=== PATIENT | female | born 1930 | race Caucasian/White ===

== ENCOUNTER 2016-09-18 10:20 | Inpatient (IN) | payer MEDICARE, BC, MEDICAID ==
[2016-09-18] MEDS ORDERED: fentaNYL 100 MCG/2 ML SDV IM ONE (10:49)
--- NOTE | 2016-09-18 11:54 | EDM.PDOC ---
ED HPI GENERAL MEDICAL PROBLEM - General Chief Complaint: Upper Extremity Injury/Pain Stated Complaint: FALL VIA [facility] Time Seen by Provider: 09/18/16 10:50 Source of Information: Reports: Patient, EMS, Family History Limitations: Reports: No Limitations - History of Present Illness INITIAL COMMENTS - FREE TEXT/NARRATIVE: 86-year-old female fell out of bed this morning at the long term injuring her right arm. She also has a small bruise above her left eyebrow. She has swelling and some deformity of the right arm, intense pain with any movement or manipulation. Onset: Today Location: Reports: Head, Upper Extremity, Right Quality: Reports: Sharp, Stabbing Severity: Moderate Worsens with: Reports: Movement Associated Symptoms: Reports: Confusion (Chronic and stable). Denies: Shortness of Breath - Related Data Allergies Allergy/AdvReac Type Severity Reaction Status Date / Time diclofenac [Diclofenac] Allergy Unknown Cannot Verified 01/02/14 20:42 Remember ibuprofen Allergy Unknown Cannot Verified 01/02/14 20:43 Remember simvastatin [From Zocor] Allergy Unknown Cannot Verified 01/02/14 20:43 Remember Home Meds: Home Meds Aspirin [Priyank Chewable] 81 mg PO DAILY 01/02/13 [History] Donepezil [Aricept] 10 mg PO BEDTIME 01/02/13 [History] Memantine [Namenda] 10 mg PO BID 01/02/13 [History] Metoprolol Succinate [Toprol XL] 25 mg PO DAILY 01/02/13 [History] Potassium Chloride [Klor-Con] 20 meq PO DAILY 01/02/13 [History] amLODIPine [Norvasc] 10 mg PO DAILY 01/02/13 [History] traMADol [Ultram] 50 mg PO TID 01/02/13 [History] Lactobacillus Combination No.4 [Probiotic] 1 cap PO BID 01/02/14 [History] Liquicel 1 oz PO BID 01/02/14 [History] Lisinopril [Zestril] 2.5 mg PO DAILY 01/02/14 [History] Acetaminophen [Tylenol] 650 mg PO TID 09/18/16 [History] Aspirin 81 mg PO DAILY 09/18/16 [History] Bisacodyl [Dulcolax] 1 supp RECTAL ASDIRECTED PRN 09/18/16 [History] Citalopram Hydrobromide [Celexa] 20 mg PO DAILY 09/18/16 [History] Diclofenac Sodium [Voltaren 1%] 1 applic TP TID 09/18/16 [History] LORazepam [Ativan] 0.25 mg PO Q6H PRN 09/18/16 [History] Lovastatin 10 mg PO DAILY 09/18/16 [History] Magnesium Hydroxide [Milk of Magnesia] 30 ml PO DAILY PRN 09/18/16 [History] Menthol/Zinc Oxide [Calmoseptine] 1 gm TOP TID 09/18/16 [History] Past Medical History Cardiovascular History: Reports: CAD, Hypertension, PVD Gastrointestinal History: Reports: Chronic Constipation, GERD Genitourinary History: Reports: Other (See Below) Other Genitourinary History: chronic kidney disease [employer]IDENT [employer] History: Reports: , Other (See Below) Other OB/BYN History: ovarian cyst Psychiatric History: Reports: Alzheimers Disease, Dementia Hematologic History: Reports: Anemia Dermatologic History: Reports: Cellulitis - Infectious Disease History Infectious Disease History: Reports: Chicken Pox, Measles, Mumps - Past Surgical History Cardiovascular Surgical History: Reports: Coronary Artery Stent GI Surgical History: Reports: Hernia Repair/Other Female Surgical History: Reports: Hysterectomy Musculoskeletal Surgical History: Reports: Knee Replacement, Other (See Below) Other Musculoskeletal Surgeries/Procedures:: hip surgery Social & Family History - Tobacco Use Smoking Status *Q: Never Smoker Years of Tobacco use: 50 Second Hand Smoke Exposure: No - Alcohol Use Days Per Week of Alcohol Use: 0 - Recreational Drug Use Recreational Drug Use: No Review of Systems - Review of Systems Review Of Systems: See Below Respiratory: Denies: Shortness of Breath Cardiovascular: Denies: Chest Pain Neurological: Reports: Confusion. Denies: Headache Psychiatric: Reports: Confusion ED EXAM, GENERAL - Physical Exam Exam: See Below Exam Limited By: No Limitations General Appearance: Alert, No Apparent Distress (no significant distress if arm is still) Eye Exam: Bilateral Eye: EOMI Head: Other (Very small contusion is present just above the left eyebrow) Neck: Supple Respiratory/Chest: No Respiratory Distress, Lungs Clear Cardiovascular: Regular Rate, Rhythm GI/Abdominal: Soft, Non-Tender Extremities: Other (Right upper arm is swollen with significant pain with even slight palpation or manipulation of the elbow. Sensation of the fingers is intact) Course - Vital Signs Last Recorded V/S: Last Vital Signs Temp 97.0 F 09/18/16 15:58 Pulse 54 L 09/18/16 15:58 Resp 16 09/18/16 15:58 BP 142/65 H 09/18/16 15:58 Pulse Ox 94 L 09/18/16 15:58 - Orders/Labs/Meds Orders: Active Orders 24 hr Category Date Time Status Elbow wo Cont Rt [CT] Stat Exams 09/18/16 11:49 Taken Humerus Rt [CR] Stat Exams 09/18/16 10:50 Taken Medication Orders Acetaminophen (Tylenol Extra Strength) 1,000 mg PO TID [facility] Last Admin: 09/18/16 17:38 Dose: 1,000 mg Amlodipine Besylate (Norvasc) 10 mg PO DAILY [facility] Aspirin (Aspirin) 81 mg PO DAILY [facility] Citalopram Hydrobromide (Celexa) 20 mg PO DAILY [facility] Donepezil HCl (Aricept) 10 mg PO BEDTIME [facility] Hydromorphone HCl (Dilaudid) 0.5 - 1 mg IVPUSH Q2H PRN PRN Reason: Pain (severe 7-10) Sodium Chloride (Normal Saline) 1,000 mls @ 50 mls/hr IV ASDIRECTED [facility] Last Admin: 09/18/16 17:43 Dose: 50 mls/hr Lactobacillus Rhamnosus (Culturelle) 2 cap PO BID [facility] Lisinopril (Prinivil) 2.5 mg PO DAILY [facility] Lorazepam (Ativan) 0.25 mg PO Q6H PRN PRN Reason: ANXIETY Melatonin (Melatonin) 9 mg PO BEDTIME [facility] Memantine (Namenda) 10 mg PO BID [facility] Metoprolol Succinate (Toprol Xl) 25 mg PO DAILY [facility] Ondansetron HCl (Zofran Odt) 4 mg PO Q6H PRN PRN Reason: Nausea able to take PO Oxycodone HCl (Oxycodone) 5 mg PO Q4H PRN PRN Reason: Pain (moderate 4-6) Polyethylene Glycol (Miralax) 17 gm PO DAILY PRN PRN Reason: Constipation Potassium Chloride (Klor-Con M20) 20 meq PO DAILY [facility] Senna/Docusate Sodium (Senna Plus) 1 tab PO BID PRN PRN Reason: Constipation Sodium Chloride (Saline Flush) 10 ml FLUSH ASDIRECTED PRN PRN Reason: Keep Vein Open Tramadol HCl (Ultram) 50 mg PO QID [facility] Last Admin: 09/18/16 17:38 Dose: 50 mg Meds: Medications Generic Name Dose Route Start Last Admin Trade Name Martinez PRN Reason Stop Dose Admin Acetaminophen 1,000 mg 09/18/16 15:30 09/18/16 17:38 Tylenol Extra Strength PO 1,000 mg TID [facility] Administration Amlodipine Besylate 10 mg 09/19/16 09:00 Norvasc PO DAILY [facility] Aspirin 81 mg 09/19/16 09:00 Aspirin PO DAILY [facility] Citalopram Hydrobromide 20 mg 09/19/16 09:00 Celexa PO DAILY [facility] Donepezil HCl 10 mg 09/18/16 21:00 Aricept PO BEDTIME [facility] Hydromorphone HCl 0.5 - 1 mg 09/18/16 15:18 Dilaudid IVPUSH Q2H PRN Pain (severe 7-10) Sodium Chloride 1,000 mls @ 50 mls/hr 09/18/16 15:18 09/18/16 17:43 Normal Saline IV 50 mls/hr ASDIRECTED [facility] Administration Lactobacillus Rhamnosus 2 cap 09/18/16 21:00 Culturelle PO BID [facility] Lisinopril 2.5 mg 09/19/16 09:00 Prinivil PO DAILY [facility] Lorazepam 0.25 mg 09/18/16 15:30 Ativan PO Q6H PRN ANXIETY Melatonin 9 mg 09/18/16 21:00 Melatonin PO BEDTIME [facility] Memantine 10 mg 09/18/16 21:00 Namenda PO BID [facility] Metoprolol Succinate 25 mg 09/19/16 09:00 Toprol Xl PO DAILY [facility] Ondansetron HCl 4 mg 09/18/16 15:18 Zofran Odt PO Q6H PRN Nausea able to take PO Oxycodone HCl 5 mg 09/18/16 15:18 Oxycodone PO Q4H PRN Pain (moderate 4-6) Polyethylene Glycol 17 gm 09/18/16 15:18 Miralax PO DAILY PRN Constipation Potassium Chloride 20 meq 09/19/16 09:00 Klor-Con M20 PO DAILY [facility] Senna/Docusate Sodium 1 tab 09/18/16 15:18 Senna Plus PO BID PRN Constipation Sodium Chloride 10 ml 09/18/16 15:18 Saline Flush FLUSH ASDIRECTED PRN Keep Vein Open Tramadol HCl 50 mg 09/18/16 16:00 09/18/16 17:38 Ultram PO 50 mg QID [facility] Administration Discontinued Medications Generic Name Dose Route Start Last Admin Trade Name Martinez PRN Reason Stop Dose Admin Fentanyl 25 mcg 09/18/16 10:49 09/18/16 10:57 Sublimaze IM 09/18/16 10:50 25 mcg ONETIME ONE Administration Pneumococcal Polyvalent Vaccine 0.5 ml 09/18/16 16:26 Pneumovax 23 SUBCUT 09/18/16 16:27 .ONCE ONE - Re-Assessments/Exams Free Text/Narrative Re-Assessment/Exam: 09/18/16 14:14 A right humerus x-ray revealed an angulate displaced supracondylar fracture. This was confirmed with a CT scan of the elbow. Dr. Sidney Carrillo was consulted , came in and saw the patient and with the assistance of the hospitalist service will admit the patient for internal reduction and fixation. A long-arm Ortho-Glass splint was applied prior to admission. Patient was also given 25 g of fentanyl IM prior to her first x-ray. Departure - Departure Time of Disposition: 15:06 Disposition: Admitted As Inpatient 65 Condition: Fair Clinical Impression: Right supracondylar humerus fracture Qualifiers: Encounter type: initial encounter Fracture type: closed Qualified Code(s): S42.411A - Displaced simple supracondylar fracture without intercondylar fracture of right humerus, initial encounter for closed fracture Contusion of left eyebrow Qualifiers: Encounter type: initial encounter Qualified Code(s): S00.12XA - Contusion of left eyelid and periocular area, initial encounter - Discharge Information - My Orders Last 24 Hours: My Active Orders 09/18/16 10:50 Humerus Rt [CR] Stat 09/18/16 11:49 Elbow wo Cont Rt [CT] Stat - Assessment/Plan Last 24 Hours: My Active Orders 09/18/16 10:50 Humerus Rt [CR] Stat 09/18/16 11:49 Elbow wo Cont Rt [CT] Stat
--- NOTE | 2016-09-18 14:48 | PCM.HP ---
H&P History of Present Illness - General Date of Service: 09/18/16 Admit Problem/Dx: Admission Diagnosis/Problem Admission Diagnosis/Problem Fracture of humerus, proximal, right, closed Source of Information: Patient, Family, Provider History Limitations: Reports: Altered Mental Status (dementia) - History of Present Illness Initial Comments - Free Text/Narative: Atiya presents to the emergency room today with right arm pain after falling out of bed. History is gathered from her daughter and emergency room staff because information from the patient is limited due to her dementia. She repeatedly asks why her arm hurts and does not recall the event. Staff at the group home reported finding her on the floor near her bed complaining of severe arm pain. She was taken to the emergency room where a distal humerus fracture was discovered on the right. This was reduced in the emergency room and a splint applied. The plan is for surgical intervention tomorrow. She will be admitted overnight for pain control. She is unable to tell me much about her pain other than her arm hurts. - Related Data Allergies/Adverse Reactions: Allergies Allergy/AdvReac Type Severity Reaction Status Date / Time diclofenac [Diclofenac] Allergy Unknown Cannot Verified 01/02/14 20:42 Remember ibuprofen Allergy Unknown Cannot Verified 01/02/14 20:43 Remember simvastatin [From Zocor] Allergy Unknown Cannot Verified 01/02/14 20:43 Remember Home Medications: Home Meds Aspirin [Priyank Chewable] 81 mg PO DAILY 01/02/13 [History] Donepezil [Aricept] 10 mg PO BEDTIME 01/02/13 [History] Memantine [Namenda] 10 mg PO BID 01/02/13 [History] Metoprolol Succinate [Toprol XL] 25 mg PO DAILY 01/02/13 [History] Potassium Chloride [Klor-Con] 20 meq PO DAILY 01/02/13 [History] amLODIPine [Norvasc] 10 mg PO DAILY 01/02/13 [History] traMADol [Ultram] 50 mg PO TID 01/02/13 [History] Lactobacillus Combination No.4 [Probiotic] 1 cap PO BID 01/02/14 [History] Liquicel 1 oz PO BID 01/02/14 [History] Lisinopril [Zestril] 2.5 mg PO DAILY 01/02/14 [History] Acetaminophen [Tylenol] 650 mg PO TID 09/18/16 [History] Aspirin 81 mg PO DAILY 09/18/16 [History] Bisacodyl [Dulcolax] 1 supp RECTAL ASDIRECTED PRN 09/18/16 [History] Citalopram Hydrobromide [Celexa] 20 mg PO DAILY 09/18/16 [History] Diclofenac Sodium [Voltaren 1%] 1 applic TP TID 09/18/16 [History] LORazepam [Ativan] 0.25 mg PO Q6H PRN 09/18/16 [History] Lovastatin 10 mg PO DAILY 09/18/16 [History] Magnesium Hydroxide [Milk of Magnesia] 30 ml PO DAILY PRN 09/18/16 [History] Menthol/Zinc Oxide [Calmoseptine] 1 gm TOP TID 09/18/16 [History] Past Medical History Cardiovascular History: Reports: CAD, Hypertension, PVD Gastrointestinal History: Reports: Chronic Constipation, GERD Genitourinary History: Reports: Other (See Below) Other Genitourinary History: chronic kidney disease [employer] History: Reports: , Other (See Below) Other OB/BYN History: ovarian cyst Psychiatric History: Reports: Alzheimers Disease, Dementia Hematologic History: Reports: Anemia Dermatologic History: Reports: Cellulitis - Infectious Disease History Infectious Disease History: Reports: Chicken Pox, Measles, Mumps - Past Surgical History Cardiovascular Surgical History: Reports: Coronary Artery Stent GI Surgical History: Reports: Hernia Repair/Other Female Surgical History: Reports: Hysterectomy Musculoskeletal Surgical History: Reports: Knee Replacement, Other (See Below) Other Musculoskeletal Surgeries/Procedures:: hip surgery Social & Family History - Family History Cardiac: Denies: CAD - Tobacco Use Smoking Status *Q: Never Smoker Years of Tobacco use: 50 Second Hand Smoke Exposure: No - Alcohol Use Days Per Week of Alcohol Use: 0 - Recreational Drug Use Recreational Drug Use: No H&P Review of Systems - Review of Systems: Review Of Systems: See Below Free Text/Narrative: A complete 12 point review of systems was obtained. Pertinent positives and negatives are noted in the history of present illness. All other systems were reviewed and were negative except as noted. Exam - Exam Exam: See Below - Vital Signs Vital Signs: Last Vital Signs Temp 36.8 C 09/18/16 10:34 Pulse 55 L 09/18/16 14:36 Resp 16 09/18/16 12:35 BP 145/63 H 09/18/16 14:36 Pulse Ox 95 09/18/16 14:36 Weight: 60.781 kg - Exam Quality Assessment: No: Supplemental Oxygen General: Alert, Cooperative, Mild Distress. No: Oriented HEENT: Conjunctiva Clear, Mucosa Moist & [place]. No: Scleral Icterus Neck: Supple, Trachea Midline. No: Lymphadenopathy Lungs: Clear to Auscultation, Normal Respiratory Effort Cardiovascular: Regular Rate, Regular Rhythm. No: Systolic Murmur GI/Abdominal Exam: Normal Bowel Sounds, Soft, No Distention, Tender (mild LLQ tenderness) Extremities: No Pedal Edema, Other (right arm in a splint and wrapped with an OSEI. Able to wiggle all her fingers) Peripheral Pulses: 2+: Radial (R), Dorsalis Pedis (L), Dorsalis Pedis (R) Skin: Warm, Dry, Intact Neuro Extensive - Mental Status: Alert, Nl Response to Commands, Other (hard of hearing ). No: Oriented x3 Neuro Extensive - Motor, Sensory, Reflexes: CN II-XII Intact. No: Dysarthria, Abnormal Motor, Tremor Psychiatric: Alert, Normal Affect - Patient Data Result Diagrams: 09/18/16 15:35 09/18/16 15:35 Imaging Impressions Last 24 hrs: XR right humerus - images personally reviewed - there is a comminuted displaced distal humerus fracture CT right elbow - images personally reviewed - same findings as XRay *Q Meaningful Use (ADM) - VTE *Q VTE Criteria *Q: VTE Pharmacological Contraindications *Q: Patient Scheduled Surgery - VTE Risk Assess *Q Each Risk Factor Represents 1 Point: Minor Surgery Planned, Abnormal Pulmonary Function (COPD) Total Score 1 Point Risk Factors: 2 Each Risk Factor Represents 2 Points: None Total Score 2 Point Risk Factors: 0 Each Risk Factor Represents 3 Points: Age 75 Years or Greater Total Score 3 Point Risk Factors: 3 Each Risk Factor Represents 5 Points: None Total Score 5 Point Risk Factors: 0 Venous Thromboembolism Risk Factor Score *Q: 5 - Stroke *Q Stroke Criteria *Q: - AMI *Q AMI Criteria *Q: - Problem List (1) Right supracondylar humerus fracture SNOMED Code(s): 528162943 ICD Code: S42.411A - DISPL SIMPLE SUPRCNDL FX W/O INTRCNDL FX R HUMERUS, INIT Status: Acute Current Visit: Yes Qualifiers: Encounter type: initial encounter Fracture type: closed Qualified Code(s) : S42.411A - Displaced simple supracondylar fracture without intercondylar fracture of right humerus, initial encounter for closed fracture (2) Dementia SNOMED Code(s): 29129471 ICD Code: F03.90 - UNSPECIFIED DEMENTIA WITHOUT BEHAVIORAL DISTURBANCE Status: Chronic Current Visit: No (3) CAD (coronary artery disease) SNOMED Code(s): 79895632 ICD Code: I25.10 - ATHSCL HEART DISEASE OF [place] CORONARY ARTERY W/O ANG PCTRS Status: Chronic Current Visit: Yes Qualifiers: Coronary Disease-Associated Artery/Lesion type: [place] artery [place] vs. transplanted heart: [place] heart Associated angina: without angina Qualified Code(s): I25.10 - Atherosclerotic heart disease of [place] coronary artery without angina pectoris Problem List Initiated/Reviewed/Updated: Yes Orders Last 24hrs: Active Orders 24 hr Category Date Time Status Patient Status Manage Transfer [TRANSFER] Routine ADT 09/18/16 14:32 Ordered Elbow wo Cont Rt [CT] Stat Exams 09/18/16 11:49 Taken Humerus Rt [CR] Stat Exams 09/18/16 10:50 Taken Resuscitation Status Routine Resus Stat 09/18/16 14:33 Ordered Assessment/Plan Comment:: Assessment and plan - Distal right humerus fracture - fracture was closed but displaced and comminuted. Surgical intervention is planned tomorrow morning. She does have a history of myocardial infarction in the setting of sepsis. Current functional status very limited and she is wheelchair bound. She is not able to provide any useful history about presence or absence of anginal symptoms. She is probably in optimal achievable medical condition at this time. Vital signs are stable and I see no obvious reason why she would not tolerate this low risk surgery. -Admit for pain control -Surgical consultation for surgical intervention tomorrow -Get baseline labs including kidney function and hemoglobin Coronary artery disease - she has a history of a myocardial infarction in the setting of sepsis. Functional status limited but I don't believe there is a high cardiac risk at this point. Surgery is low risk and I think she should do well. -Blood pressure control and close monitoring of vital signs Alzheimer's dementia - no major behavior issues at this time though her daughter reports she can get feisty, especially when she is in pain. -Scheduled Tylenol -Scheduled tramadol -As needed oxycodone for severe pain -Melatonin at bedtime Maintenance issues - - DVT prophylaxis - mechanical - GI prophylaxis - PPI - Nutrition - regular diet this evening, nothing by mouth after midnight - Maldonado catheter - not indicated CODE STATUS - DNR/DNI Admission justification - This patient will be admitted for inpatient services and is medically appropriate meeting medical necessity for inpatient admission as outlined in my documentation. I reasonably expect the patient will require inpatient services that span a period time over 2 midnights. I reasonably expect this patient to be discharged or transferred within 96 hours after admission to the [facility]. Disposition - anticipate discharge back to the group home after the hospital stay Primary care physician - Dr. Randy Keating M.D.
[2016-09-18] MEDS ORDERED: Ondansetron 4 MG Tab.DIS PO PRN (15:18)
[2016-09-18] MEDS ORDERED: HYDROmorphone 0.5 MG/0.5 ML Syringe IVPUSH PRN (15:18)
[2016-09-18] MEDS ORDERED: Sodium Chloride 0.9% 10 ML Syringe FLUSH PRN (15:18)
[2016-09-18] MEDS ORDERED: LORazepam 0.5 MG Tab PO SCH (15:18)
[2016-09-18] MEDS ORDERED: Sodium Chloride 0.9% 1,000 ML IV SCH (15:18)
[2016-09-18] MEDS ORDERED: Polyethylene Glycol 3350 Powder 17 GM Packet PO PRN (15:18)
[2016-09-18] MEDS ORDERED: LORazepam 0.5 MG Tab PO PRN (15:30)
[2016-09-18] MEDS ORDERED: Pneumococcal Polyvalent-23 Vaccine 0.5 ML SDV SUBCUT ONE (16:26)
[2016-09-18] MEDS: Acetaminophen 500 MG Tab PO SCH ×2 (17:38→20:51)
[2016-09-18] MEDS: traMADol 50 MG Tab PO SCH ×2 (17:38→21:58)
[2016-09-18] MEDS: Lactobacillus Rhamnosus GG (Probiotic) Cap PO SCH (20:50)
[2016-09-18] MEDS: Memantine 10 MG Tab PO SCH (20:50)
[2016-09-18] MEDS: Melatonin 3 MG Tab PO SCH (20:50)
[2016-09-18] MEDS: Donepezil 10 MG Tab PO SCH (20:51)
[2016-09-19] MEDS: traMADol 50 MG Tab PO SCH ×3 (05:41→21:09)
[2016-09-19] MEDS ORDERED: Bupivacaine 0.5% 50 ML MDV ONE (06:03)
[2016-09-19] MEDS ORDERED: Povidone-Iodine 10% Soln 118.25 ML Bottle ONE (06:03)
[2016-09-19] MEDS ORDERED: Non-Formulary Medication 1 Each (Citalopram Hydrobromide [Celexa] 20 MG) PO SCH (09:00)
[2016-09-19] MEDS ORDERED: Non-Formulary Medication 1 Each (Potassium Chloride [Klor-Con] 20 MEQ) PO SCH (09:00)
[2016-09-19] MEDS ORDERED: Metoprolol Succinate 50 MG Tab.ER PO SCH (09:00)
[2016-09-19] MEDS ORDERED: ceFAZolin 2 GM in Premix Bag 1 BAG IV ONE (09:15)
[2016-09-19] MEDS ORDERED: Ondansetron 4 MG/2 ML SDV ONE (09:26)
[2016-09-19] MEDS ORDERED: Succinylcholine 200 MG/10 ML MDV ONE (09:26)
[2016-09-19] MEDS ORDERED: Propofol 200 MG/20 ML SDV ONE (09:26)
[2016-09-19] MEDS ORDERED: Rocuronium 50 MG/5 ML Vial ONE (09:26)
[2016-09-19] MEDS ORDERED: Dexamethasone 4 MG/ML SDV ONE (09:26)
[2016-09-19] MEDS ORDERED: fentaNYL 100 MCG/2 ML SDV ONE ×3 (09:26→12:22)
[2016-09-19] MEDS ORDERED: Gelatin Sponge,Absorbable Pwd 1 GM Pkt ONE (11:00)
[2016-09-19] MEDS ORDERED: Ketorolac 30 MG/ML SDV IVPUSH PRN (13:12)
[2016-09-19] MEDS ORDERED: Sennosides 8.6 MG Tab PO PRN (13:12)
[2016-09-19] MEDS ORDERED: Aluminum Hydroxide/Magnesium Hydroxide/Simethicone Susp 30 ML Cup PO PRN (13:12)
[2016-09-19] MEDS ORDERED: Naloxone 0.4 MG/ML SDV IVPUSH PRN (13:12)
[2016-09-19] MEDS ORDERED: Bisacodyl 5 MG Tab PO PRN (13:12)
[2016-09-19] MEDS ORDERED: diphenhydrAMINE 50 MG/ML SDV IVPUSH PRN (13:12)
[2016-09-19] MEDS ORDERED: Zolpidem 5 MG Tab PO PRN (13:12)
[2016-09-19] MEDS ORDERED: Docusate Sodium 100 MG Cap PO PRN (13:12)
[2016-09-19] MEDS ORDERED: Magnesium Hydroxide 400 MG/5 ML Susp 30 ML Cup PO PRN (13:12)
[2016-09-19] MEDS ORDERED: ceFAZolin 2 GM in Premix Bag 1 BAG IV SCH (14:00)
[2016-09-19] MEDS: Aspirin 81 MG Tab.Chew PO SCH (14:06)
[2016-09-19] MEDS: Lactobacillus Rhamnosus GG (Probiotic) Cap PO SCH ×2 (14:06→21:14)
[2016-09-19] MEDS: Citalopram 20 MG Tab PO SCH (14:06)
[2016-09-19] MEDS: amLODIPine 10 MG Tab PO SCH (14:07)
[2016-09-19] MEDS: Memantine 10 MG Tab PO SCH ×2 (14:07→21:15)
[2016-09-19] MEDS: Lisinopril 2.5 MG Tab PO SCH (14:07)
[2016-09-19] MEDS: Metoprolol Succinate 25 MG Tab.ER PO SCH (14:07)
[2016-09-19] MEDS: Potassium Chloride 20 MEQ Tab.ER PO SCH (14:07)
--- NOTE | 2016-09-19 14:07 | PCM.PN ---
- General Info Date of Service: 09/19/16 Functional Status: Reports: Pain Controlled - Review of Systems Systems Review Comment:: No acute events overnight. She is fairly sleepy after returning from surgery today. She had an open reduction and internal fixation of her right humerus fracture. Vital signs are stable and she reports minimal pain at this time. She is able to wiggle her fingers but remains very somnolent. - Patient Data Vitals - Most Recent: Last Vital Signs Temp 37.1 C 09/19/16 07:34 Pulse 59 L 09/19/16 07:34 Resp 16 09/19/16 07:34 BP 136/57 L 09/19/16 07:34 Pulse Ox 94 L 09/19/16 07:34 Weight - Most Recent: 60.328 kg I&O - Last 24 Hours: Intake & Output 09/18/16 09/19/16 09/19/16 22:59 06:59 14:59 Intake Total 60 60 Output Total 100 Balance -40 60 Lab Results Last 24 Hours: Laboratory Results - last 24 hr 09/18/16 09/18/16 09/19/16 Range/Units 15:35 15:35 05:00 WBC 15.1 H 7.7 (4.5-11.0) K/uL RBC 4.06 3.37 (3.30-5.50) M/uL Hgb 12.3 10.2 L D (12.0-15.0) g/dL Hct 38.1 31.9 L (36.0-48.0) % MCV 94 95 (80-98) fL MCH 30 30 (27-31) pg MCHC 32 32 (32-36) % Plt Count 286 246 (150-400) K/uL Neut % (Auto) 80 H (36-66) % Lymph % (Auto) 13 L (24-44) % [place] % (Auto) 6 (2-6) % Eos % (Auto) 1 L (2-4) % Baso % (Auto) 0 (0-1) % Sodium 139 L (140-148) mmol/L Potassium 5.3 H (3.6-5.2) mmol/L Chloride 107 (100-108) mmol/L Carbon Dioxide 25 (21-32) mmol/L Anion Gap 12.3 (5.0-14.0) mmol/L BUN 28 H (7-18) mg/dL Creatinine 1.3 H (0.6-1.0) mg/dL Est Cr Clr Drug Dosing 25.22 mL/min Estimated GFR (MDRD) 39 L (>60) Glucose 97 (74-106) mg/dL Calcium 9.4 (8.5-10.1) mg/dL 09/19/16 Range/Units 05:48 WBC (4.5-11.0) K/uL RBC (3.30-5.50) M/uL Hgb (12.0-15.0) g/dL Hct (36.0-48.0) % MCV (80-98) fL MCH (27-31) pg MCHC (32-36) % Plt Count (150-400) K/uL Neut % (Auto) (36-66) % Lymph % (Auto) (24-44) % [place] % (Auto) (2-6) % Eos % (Auto) (2-4) % Baso % (Auto) (0-1) % Sodium 141 (140-148) mmol/L Potassium 4.9 (3.6-5.2) mmol/L Chloride 110 H (100-108) mmol/L Carbon Dioxide 25 (21-32) mmol/L Anion Gap 10.9 (5.0-14.0) mmol/L BUN 27 H (7-18) mg/dL Creatinine 1.4 H (0.6-1.0) mg/dL Est Cr Clr Drug Dosing 22.39 mL/min Estimated GFR (MDRD) 36 L (>60) Glucose 88 (74-106) mg/dL Calcium 8.8 (8.5-10.1) mg/dL Med Orders - Current: Current Medications Acetaminophen (Tylenol Extra Strength) 1,000 mg PO TID [facility] Last Admin: 09/18/16 20:51 Dose: 1,000 mg Al Hydroxide/Mg Hydroxide (Mag-Al Plus) 30 ml PO Q4H PRN PRN Reason: Constipation Amlodipine Besylate (Norvasc) 10 mg PO DAILY [facility] Aspirin (Aspirin) 81 mg PO DAILY [facility] Bisacodyl (Dulcolax) 10 mg PO DAILY PRN PRN Reason: Constipation Citalopram Hydrobromide (Celexa) 20 mg PO DAILY [facility] Diphenhydramine HCl (Benadryl) 25 mg IVPUSH Q4H PRN PRN Reason: Itching Docusate Sodium (Colace) 100 mg PO BID PRN PRN Reason: Constipation Donepezil HCl (Aricept) 10 mg PO BEDTIME [facility] Last Admin: 09/18/16 20:51 Dose: 10 mg Lactated Ringer's (Ringers, Lactated) 1,000 mls @ 100 mls/hr IV ASDIRECTED [facility] Cefazolin Sodium 2 gm/ Sodium (Chloride) 50 mls @ 100 mls/hr IV Q8H [facility] Stop: 09/20/16 09:59 Lactobacillus Rhamnosus (Culturelle) 2 cap PO BID [facility] Last Admin: 09/18/16 20:50 Dose: 2 cap Lisinopril (Prinivil) 2.5 mg PO DAILY [facility] Lorazepam (Ativan) 0.25 mg PO Q6H PRN PRN Reason: ANXIETY Magnesium Hydroxide (Milk Of Magnesia) 30 ml PO BID PRN PRN Reason: Constipation Melatonin (Melatonin) 9 mg PO BEDTIME [facility] Last Admin: 09/18/16 20:50 Dose: 9 mg Memantine (Namenda) 10 mg PO BID [facility] Last Admin: 09/18/16 20:50 Dose: 10 mg Metoprolol Succinate (Toprol Xl) 25 mg PO DAILY [facility] Morphine Sulfate (Morphine) 2 mg IVPUSH Q2H PRN PRN Reason: Pain Naloxone HCl (Narcan) 0.1 mg IVPUSH ASDIRECTED PRN PRN Reason: Oversedation Stop: 09/20/16 13:13 Ondansetron HCl (Zofran Odt) 4 mg PO Q6H PRN PRN Reason: Nausea able to take PO Oxycodone HCl (Oxycodone) 5 mg PO Q4H PRN PRN Reason: Pain (moderate 4-6) Polyethylene Glycol (Miralax) 17 gm PO DAILY PRN PRN Reason: Constipation Potassium Chloride (Klor-Con M20) 20 meq PO DAILY [facility] Senna (Senna) 8.6 mg PO BID PRN PRN Reason: Constipation Senna/Docusate Sodium (Senna Plus) 1 tab PO BID PRN PRN Reason: Constipation Sodium Chloride (Saline Flush) 10 ml FLUSH ASDIRECTED PRN PRN Reason: Keep Vein Open Tramadol HCl (Ultram) 50 mg PO TID [facility] Zolpidem Tartrate (Ambien) 5 mg PO BEDTIME PRN PRN Reason: Sleep Discontinued Medications Bupivacaine HCl (Marcaine 0.5%) Confirm Administered Dose 50 ml .ROUTE .STK-MED ONE Stop: 09/19/16 06:04 Last Admin: 09/19/16 11:08 Dose: 25 ml Dexamethasone (Dexamethasone) Confirm Administered Dose 4 mg .ROUTE .STK-MED ONE Stop: 09/19/16 09:27 Fentanyl (Sublimaze) 25 mcg IM ONETIME ONE Stop: 09/18/16 10:50 Last Admin: 09/18/16 10:57 Dose: 25 mcg Fentanyl (Sublimaze) Confirm Administered Dose 100 mcg .ROUTE .STK-MED ONE Stop: 09/19/16 09:27 Fentanyl (Sublimaze) Confirm Administered Dose 100 mcg .ROUTE .STK-MED ONE Stop: 09/19/16 10:51 Fentanyl (Sublimaze) Confirm Administered Dose 100 mcg .ROUTE .STK-MED ONE Stop: 09/19/16 12:23 Hydromorphone HCl (Dilaudid) 0.5 - 1 mg IVPUSH Q2H PRN PRN Reason: Pain (severe 7-10) Sodium Chloride (Normal Saline) 1,000 mls @ 50 mls/hr IV ASDIRECTED [facility] Last Admin: 09/18/16 17:43 Dose: 50 mls/hr Cefazolin Sodium/Dextrose 2 gm (/ Premix) 50 mls @ 100 mls/hr IV ONCALL ONE Stop: 09/19/16 09:44 Last Admin: 09/19/16 09:15 Dose: 100 mls/hr Acetaminophen (Ofirmev) Confirm Administered Dose 100 mls @ as directed IV .STK- MED ONE Stop: 09/19/16 09:27 Ondansetron HCl (Zofran) Confirm Administered Dose 4 mg .ROUTE .STK-MED ONE Stop: 09/19/16 09:27 Pneumococcal Polyvalent Vaccine (Pneumovax 23) 0.5 ml SUBCUT .ONCE ONE Stop: 09/18/16 16:27 Povidone Iodine (Betadine 10% Soln) Confirm Administered Dose 1 ml .ROUTE .STK- MED ONE Stop: 09/19/16 06:04 Last Admin: 09/19/16 11:09 Dose: 1 ml Propofol (Diprivan 20 Ml) Confirm Administered Dose 200 mg .ROUTE .STK-MED ONE Stop: 09/19/16 09:27 Rocuronium Muddy (Zemuron) Confirm Administered Dose 50 mg .ROUTE .STK-MED ONE Stop: 09/19/16 09:27 Succinylcholine Chloride (Quelicin) Confirm Administered Dose 200 mg .ROUTE .STK -MED ONE Stop: 09/19/16 09:27 Tramadol HCl (Ultram) 50 mg PO QID [facility] Last Admin: 09/19/16 05:41 Dose: Not Given - Exam Quality Assessment: Supplemental Oxygen General: Alert, Cooperative, No Acute Distress Neck: Supple Lungs: Clear to Auscultation, Normal Respiratory Effort Cardiovascular: Regular Rate, Regular Rhythm, Murmurs GI/Abdominal Exam: Normal Bowel Sounds, Soft, Non-Tender, No Distention Extremities: Other (right arm in sling and wrapped in an OSEI). No: Increased Warmth Skin: Warm, Dry Psy/Mental Status: Other (sleepy) - Problem List & Annotations (1) Right supracondylar humerus fracture SNOMED Code(s): 646312515 Code(s): S42.411A - DISPL SIMPLE SUPRCNDL FX W/O INTRCNDL FX R HUMERUS, INIT Status: Acute Current Visit: Yes Qualifiers: Encounter type: initial encounter Fracture type: closed Qualified Code(s) : S42.411A - Displaced simple supracondylar fracture without intercondylar fracture of right humerus, initial encounter for closed fracture (2) Dementia SNOMED Code(s): 07428603 Code(s): F03.90 - UNSPECIFIED DEMENTIA WITHOUT BEHAVIORAL DISTURBANCE Status: Chronic Current Visit: No (3) CAD (coronary artery disease) SNOMED Code(s): 48206499 Code(s): I25.10 - ATHSCL HEART DISEASE OF [place] CORONARY ARTERY W/O ANG PCTRS Status: Chronic Current Visit: Yes Qualifiers: Coronary Disease-Associated Artery/Lesion type: [place] artery [place] vs. transplanted heart: [place] heart Associated angina: without angina Qualified Code(s): I25.10 - Atherosclerotic heart disease of [place] coronary artery without angina pectoris - Problem List Review Problem List Initiated/Reviewed/Updated: Yes - My Orders Last 24 Hours: My Active Orders 09/18/16 14:33 Resuscitation Status Routine 09/18/16 15:18 Patient Status [ADT] Routine Bedrest Bedside Commode [RC] ASDIRECTED Intake and Output [RC] QSHIFT Notify Provider Consults [RC] ASDIRECTED Notify Provider Vital Signs [RC] ASDIRECTED Oxygen Therapy [RC] PRN Peripheral IV Care [RC] Q12H VTE/DVT Education [RC] Per Unit Routine Vital Signs [RC] Q4H Consult to Physician [CONS] Routine Docusate Sodium/Sennosides [Senna Plus] 1 tab PO BID PRN Ondansetron [Zofran ODT] 4 mg PO Q6H PRN Polyethylene Glycol 3350 [MiraLAX] 17 gm PO DAILY PRN Sodium Chloride 0.9% [Saline Flush] 10 ml FLUSH ASDIRECTED PRN oxyCODONE 5 mg PO Q4H PRN Peripheral IV Insertion Adult [OM.PC] Routine Sequential Compression Device [OM.PC] Per Unit Routine VTE Pharmacological Contraindications [AST] Per Unit Routine 09/18/16 15:30 Acetaminophen [Tylenol Extra Strength] 1,000 mg PO TID LORazepam [Ativan] 0.25 mg PO Q6H PRN 09/18/16 17:22 UA W/MICROSCOPIC [URIN] Routine 09/18/16 21:00 Donepezil [Aricept] 10 mg PO BEDTIME Lactobacillus Rhamnosus GG [Culturelle] 2 cap PO BID Melatonin 9 mg PO BEDTIME Memantine [Namenda] 10 mg PO BID 09/18/16 Dinner Regular Diet [DIET] 09/19/16 09:00 Aspirin 81 mg PO DAILY Citalopram [Celexa] 20 mg PO DAILY Lisinopril [Prinivil] 2.5 mg PO DAILY Metoprolol Succinate [Toprol XL] 25 mg PO DAILY Potassium Chloride [Klor-Con M20] 20 meq PO DAILY amLODIPine [Norvasc] 10 mg PO DAILY - Plan Plan:: Assessment and plan - Distal right humerus fracture - status post ORIF on 09/19. Clinically stable and doing fairly well postoperatively. Minimal pain at this time. -pain control -Postoperative cares per orthopedic team Coronary artery disease - she has a history of a myocardial infarction in the setting of sepsis. Clinically doing well at this time. -Blood pressure control and close monitoring of vital signs Alzheimer's dementia - no major behavior issues at this time though her daughter reports she can get feisty, especially when she is in pain. -Scheduled Tylenol -Scheduled tramadol -As needed oxycodone for severe pain -Melatonin at bedtime Maintenance issues - - DVT prophylaxis - mechanical - GI prophylaxis - PPI - Nutrition - regular diet this evening, nothing by mouth after midnight Disposition - anticipate discharge back to the custodial after the hospital stay Jm Keating M.D.
[2016-09-19] MEDS: Acetaminophen 500 MG Tab PO SCH ×2 (14:08→21:09)
[2016-09-19] MEDS: Lactated Ringers 1,000 ML IV SCH (17:37)
[2016-09-19] MEDS: ceFAZolin 2 GM in Sodium Chloride 0.9% 50 ML IV SCH (17:40)
--- NOTE | 2016-09-19 20:33 | PCM.CONS ---
H&P History of Present Illness - General Admit Problem/Dx: Admission Diagnosis/Problem Admission Diagnosis/Problem Fracture of humerus, proximal, right, closed Source of Information: Family, [facility] Records History Limitations: Reports: Altered Mental Status, Combative/Threatening - History of Present Illness Onset of Symptoms: Reports: Today Duration of Symptoms: Reports: Hour(s): Location: Reports: Upper Extremity, Right Quality: Reports: Stabbing, Throbbing Improves with: Reports: Rest Worsens with: Reports: Movement Associated Symptoms: Reports: No Other Symptoms - Related Data Allergies/Adverse Reactions: Allergies Allergy/AdvReac Type Severity Reaction Status Date / Time diclofenac [Diclofenac] Allergy Unknown Cannot Verified 01/02/14 20:42 Remember ibuprofen Allergy Unknown Cannot Verified 01/02/14 20:43 Remember simvastatin [From Zocor] Allergy Unknown Cannot Verified 01/02/14 20:43 Remember Home Medications: Home Meds Aspirin [Priyank Chewable] 81 mg PO DAILY 01/02/13 [History] Donepezil [Aricept] 10 mg PO BEDTIME 01/02/13 [History] Memantine [Namenda] 10 mg PO BID 01/02/13 [History] Metoprolol Succinate [Toprol XL] 25 mg PO DAILY 01/02/13 [History] Potassium Chloride [Klor-Con] 20 meq PO DAILY 01/02/13 [History] amLODIPine [Norvasc] 10 mg PO DAILY 01/02/13 [History] traMADol [Ultram] 50 mg PO TID 01/02/13 [History] Lactobacillus Combination No.4 [Probiotic] 1 cap PO BID 01/02/14 [History] Liquicel 1 oz PO BID 01/02/14 [History] Lisinopril [Zestril] 2.5 mg PO DAILY 01/02/14 [History] Acetaminophen [Tylenol] 650 mg PO TID 09/18/16 [History] Aspirin 81 mg PO DAILY 09/18/16 [History] Bisacodyl [Dulcolax] 1 supp RECTAL ASDIRECTED PRN 09/18/16 [History] Citalopram Hydrobromide [Celexa] 20 mg PO DAILY 09/18/16 [History] Diclofenac Sodium [Voltaren 1%] 1 applic TP TID 09/18/16 [History] LORazepam [Ativan] 0.25 mg PO Q6H PRN 09/18/16 [History] Lovastatin 10 mg PO DAILY 09/18/16 [History] Magnesium Hydroxide [Milk of Magnesia] 30 ml PO DAILY PRN 09/18/16 [History] Menthol/Zinc Oxide [Calmoseptine] 1 gm TOP TID 09/18/16 [History] Past Medical History Cardiovascular History: Reports: CAD, Hypertension, PVD Gastrointestinal History: Reports: Chronic Constipation, GERD Genitourinary History: Reports: Other (See Below) Other Genitourinary History: chronic kidney disease [employer]PA[employer]ER [employer]OR History: Reports: , Other (See Below) Other OB/BYN History: ovarian cyst Psychiatric History: Reports: Alzheimers Disease, Dementia Hematologic History: Reports: Anemia Dermatologic History: Reports: Cellulitis - Infectious Disease History Infectious Disease History: Reports: Chicken Pox, Measles, Mumps - Past Surgical History Cardiovascular Surgical History: Reports: Coronary Artery Stent GI Surgical History: Reports: Hernia Repair/Other Female Surgical History: Reports: Hysterectomy Musculoskeletal Surgical History: Reports: Knee Replacement, Other (See Below) Other Musculoskeletal Surgeries/Procedures:: hip surgery Social & Family History - Family History Cardiac: Denies: CAD Neurological: Reports: Alzheimers Disease Oncologic: Reports: Lung - Tobacco Use Smoking Status *Q: Never Smoker Years of Tobacco use: 50 Packs/Tins Daily: 1 Used Tobacco, but Quit: Yes Month Tobacco Last Used: 1977 Second Hand Smoke Exposure: No - Caffeine Use Caffeine Use: Reports: Coffee Caffeine Use Comment: 1 cup /day - Alcohol Use Days Per Week of Alcohol Use: 0 - Recreational Drug Use Recreational Drug Use: No H&P Review of Systems - Review of Systems: Review Of Systems: See Below General: Reports: No Symptoms HEENT: Reports: No Symptoms Pulmonary: Reports: No Symptoms Cardiovascular: Reports: No Symptoms Gastrointestinal: Reports: No Symptoms Genitourinary: Reports: No Symptoms Musculoskeletal: Reports: Joint Pain, Joint Swelling Skin: Reports: No Symptoms Psychiatric: Reports: No Symptoms Neurological: Reports: No Symptoms Hematologic/Lymphatic: Reports: No Symptoms Immunologic: Reports: No Symptoms Exam - Exam Exam: See Below - Vital Signs Vital Signs: Last Vital Signs Temp 96.6 F 09/19/16 19:29 Pulse 63 09/19/16 19:29 Resp 16 09/19/16 19:29 BP 132/56 L 09/19/16 19:29 Pulse Ox 94 L 09/19/16 19:29 Weight: 133 lb - Exam General: Alert, Oriented, Severe Distress HEENT: PERRLA, Hearing Intact, Mucosa Moist & [place], Nares Patent, Normal Nasal Septum, Posterior Pharynx Clear, Conjunctiva Clear, EOMI, EACs Clear, TMs Clear Neck: Supple, Trachea Midline, 2 Extremities: Normal Capillary Refill, Arm Pain, Limited Range of Motion Skin: Warm, Dry, Intact Neuro Extensive - Mental Status: Alert, Other Psychiatric: Agitated, Other Physical Exam Comments:: rue distal motor and sensory exam grossly intact. extreme elbow pain. - Patient Data Lab Results Last 24 hrs: Laboratory Results - last 24 hr 09/19/16 09/19/16 Range/Units 05:00 05:48 WBC 7.7 (4.5-11.0) K/uL RBC 3.37 (3.30-5.50) M/uL Hgb 10.2 L D (12.0-15.0) g/dL Hct 31.9 L (36.0-48.0) % MCV 95 (80-98) fL MCH 30 (27-31) pg MCHC 32 (32-36) % Plt Count 246 (150-400) K/uL Sodium 141 (140-148) mmol/L Potassium 4.9 (3.6-5.2) mmol/L Chloride 110 H (100-108) mmol/L Carbon Dioxide 25 (21-32) mmol/L Anion Gap 10.9 (5.0-14.0) mmol/L BUN 27 H (7-18) mg/dL Creatinine 1.4 H (0.6-1.0) mg/dL Est Cr Clr Drug Dosing 22.39 mL/min Estimated GFR (MDRD) 36 L (>60) Glucose 88 (74-106) mg/dL Calcium 8.8 (8.5-10.1) mg/dL Result Diagrams: 09/19/16 05:00 09/19/16 05:48 Consult PN Assessment/Plan Procedures: Procedures AGENT NOS ASSAY W/OPTIC (07/29/13) ALANINE AMINO (ALT) (SGPT) (04/29/15) ASSAY OF FERRITIN (07/30/14) ASSAY OF SERUM POTASSIUM (08/10/13) ASSAY THYROID STIM HORMONE (06/06/15) BONE IMAGING 3 PHASE (10/23/12) CHEST X-RAY 2VW FRONTAL&LATL (01/02/13) CLOSTRIDIUM AG IA (10/16/13) COMPLETE CBC AUTOMATED (01/28/15) COMPLETE CBC W/AUTO DIFF WBC (07/27/16) COMPREHEN METABOLIC PANEL (10/28/15) EMERGENCY DEPT VISIT (01/02/14) EMERGENCY DEPT VISIT (01/02/14) EMERGENCY DEPT VISIT (01/02/13) HEMOGLOBIN (12/30/15) INFLUENZA ASSAY W/OPTIC (05/14/15) LIPID PANEL (04/29/16) METABOLIC PANEL TOTAL CA (07/27/16) OCCULT BLD FECES 1-3 TESTS (01/02/14) OVA AND PARASITES SMEARS (07/29/13) ROUTINE VENIPUNCTURE (07/27/16) SMEAR COMPLEX STAIN (07/29/13) STOOL CULTR AEROBIC BACT EA (07/29/13) THER/PROPH/DIAG INJ IV PUSH (01/02/14) THER/PROPH/DIAG INJ SC/IM (01/02/13) TRANSFERASE (AST) (SGOT) (04/19/14) URINALYSIS AUTO W/O SCOPE (10/29/15) URINALYSIS AUTO W/SCOPE (07/27/16) URINE CULTURE/COLONY COUNT (07/27/16) X-RAY EXAM OF ABDOMEN (01/02/14) (1) Fracture of right olecranon process SNOMED Code(s): 000187324 Code(s): S52.021A - DISP FX OF OLECRAN PRO W/O INTARTIC EXTN RIGHT ULNA, INIT Current Visit: Yes Qualifiers: Encounter type: initial encounter Fracture type: closed Qualified Code(s) : S52.021A - Displaced fracture of olecranon process without intraarticular extension of right ulna, initial encounter for closed fracture (2) Right supracondylar humerus fracture SNOMED Code(s): 837049564 Code(s): S42.411A - DISPL SIMPLE SUPRCNDL FX W/O INTRCNDL FX R HUMERUS, INIT Current Visit: Yes Qualifiers: Encounter type: initial encounter Fracture type: closed Qualified Code(s) : S42.411A - Displaced simple supracondylar fracture without intercondylar fracture of right humerus, initial encounter for closed fracture Problem List Initiated/Reviewed/Updated: Yes My Orders Last 24 Hours: My Active Orders 09/19/16 06:18 Fluoro Over 1Hr wo Rad [CR] Routine 09/19/16 14:00 traMADol [Ultram] 50 mg PO TID Plan: to surgery 09/19 for orif. consent obtained from daughter. Requesting Provider: ranjeet medina Patient History Reviewed: Yes Admission H&P Reviewed: Yes Notified Requestor: Yes
[2016-09-19] MEDS: Melatonin 3 MG Tab PO SCH (21:10)
[2016-09-19] MEDS: Donepezil 10 MG Tab PO SCH (21:15)
--- NOTE | 2016-09-19 21:17 | OR ---
DATE OF PROCEDURE: 09/19/2016 PREOPERATIVE DIAGNOSIS: Right distal humerus fracture and olecranon process fracture. POSTOPERATIVE DIAGNOSIS: Right distal humerus fracture and olecranon process fracture. PROCEDURES: 1. Open reduction and internal fixation, right distal humerus. 2. Open reduction and internal fixation, olecranon. 3. Ulnar nerve transposition. ELECTRO MECHANICAL TECHNOLOGIST: ALYSON Carbone. ANESTHESIA: General endotracheal intubation. FLUIDS: Lactated Ringer's solution. ESTIMATED BLOOD LOSS: 300 mL. COMPLICATIONS: None. SPECIMEN: None. DISCHARGE DISPOSITION: Stable to PACU. INDICATIONS FOR THE PROCEDURE: The patient is seen preoperatively in the emergency department as well as her hospital room. She had fallen at her extended care facility on the right upper extremity which was dominant extremity. She was brought to the emergency department where the above-mentioned diagnosis was confirmed via radiographic findings as well as recon CT. The risks and benefits of the procedure were explained to the patient and her family. Informed consent was obtained for power of employment attorney who is her daughter. DETAILS OF PROCEDURE: The patient was seen preoperatively in the hospital room by myself and the Anesthesia Staff. She was brought to the operative suite by the anesthesia staff where general anesthesia was administered. The patient was placed into a left lateral recumbent position. All extremities found to be well padded. Axillary roll was padded. A well-padded tourniquet was placed on the right arm as proximal as possible. The right upper extremity was prepped and draped in a sterile manner. Time-out was called identifying the correct patient, correct procedure, the correct site, and antibiotics had begun with appropriate period of time. The right upper extremity was exsanguinated. Tourniquet was raised to 250 mmHg and taken down at 106 minutes prior to olecranon fixation. A #10 blade was used to and posterior arm and then lateral to the olecranon process. We went down through the soft tissues and then over the area of the ulnar nerve. The ulnar nerve was then carefully dissected using Metzenbaums and a vascular loop was used to pull it lateral and transposed anteriorly. The fracture of the olecranon was not complete, therefore, a saw was then used as well as osteotome to retract it proximally and then this was held up with towel clips, the joint was visualized. A great deal of time was taken to identify the fragments. There was a butterfly fragment Ulnarly. The 1st plate that was placed was held in place with K-wires and then the posterolateral plate was then placed and held with various locking, nonlocking, and lag screws to the shaft. I did not get perfect apposition secondary to the fracture pattern. We then concentrated on our medial plate. Due to the butterfly fragment, we could not get this to boateng in and hold it with any good degree, so the plate was locked proximally and then cortical screws were held distally and then drilled proximally and then we filled in as much as we could without going through the butterfly fragment. Good position was confirmed on radiographs. Please note, the fluoroscopy was sterilely draped. I then let down the tourniquet as the patient's extremity was fairly cold, she did warm up right away after we let the tourniquet down to 106 minutes. We then placed our olecranon plate, I did have to divide the triceps insertion just slightly and placed the plate. We then placed locking and nonlocking screws as well as the lag screw. After feeling that this was in good position, we then copiously irrigated with saline and then closed the longitudinal incision through the triceps over the plate with 2-0 Vicryl and then closed medial and laterally, the deep fascia with 2-0 Vicryl in a running manner, followed by 2-0 Vicryl suture subcutaneously, followed by skin kali, followed by Betadine-soaked Adaptic, sponges, ABDs, and an Jacob wrap. The patient was then allowed to go back into supine position on hospital bed and a simple sling was placed. The patient was then taken to the ICU for recovery as the recovery unit did not have staff at that time. Sidney Carrillo DO /[id number]
[2016-09-20] MEDS: ceFAZolin 2 GM in Sodium Chloride 0.9% 50 ML IV SCH ×2 (01:50→09:03)
[2016-09-20] MEDS: oxyCODONE 5 MG Tab PO PRN ×3 (04:53→17:12)
[2016-09-20] MEDS: Lactated Ringers 1,000 ML IV SCH (04:54)
[2016-09-20] MEDS: Morphine 2 MG/ML Syringe IVPUSH PRN (08:43)
[2016-09-20] MEDS: Aspirin 81 MG Tab.Chew PO SCH (08:44)
[2016-09-20] MEDS: Lactobacillus Rhamnosus GG (Probiotic) Cap PO SCH ×2 (08:45→20:40)
[2016-09-20] MEDS: Citalopram 20 MG Tab PO SCH (08:45)
[2016-09-20] MEDS: Memantine 10 MG Tab PO SCH ×2 (08:47→20:40)
[2016-09-20] MEDS: Potassium Chloride 20 MEQ Tab.ER PO SCH (08:47)
[2016-09-20] MEDS: Acetaminophen 500 MG Tab PO SCH ×3 (08:51→20:41)
[2016-09-20] MEDS: Metoprolol Succinate 25 MG Tab.ER PO SCH (08:58)
[2016-09-20] MEDS: traMADol 50 MG Tab PO SCH ×3 (09:04→20:43)
--- NOTE | 2016-09-20 09:31 | CR ---
Humerus Rt HISTORY: fall FINDINGS: Bony structures are diffusely osteopenic. There is an acute, mildly comminuted supracondyl ar fracture distal right humerus. Mild displacement and angulation is present. No other fracture or dislocation is identified. There are degenerative changes about the right shoulder. IMPRESSION: Osteopenia. Degenerative changes right shoulder. Acute, comminuted fracture supracondyla r region distal right humerus with mild displacement and angulation.
[2016-09-20] MEDS ORDERED: Pneumococcal Polyvalent-23 Vaccine 0.5 ML SDV SUBCUT ONE (10:00)
--- NOTE | 2016-09-20 11:16 | PCM.PN ---
- General Info Date of Service: 09/20/16 Functional Status: Reports: Tolerating Diet - Review of Systems Psychiatric: Reports: Confusion, Agitation Systems Review Comment:: This patient has been stable status post surgical repair of a right humerus fracture. She does have significant underlying dementia and has been intermittently agitated and remains very confused. Vital signs have been stable and she has remained afebrile. - Patient Data Vitals - Most Recent: Last Vital Signs Temp 97.4 F 09/20/16 10:45 Pulse 67 09/20/16 10:45 Resp 16 09/20/16 10:45 BP 132/52 L 09/20/16 10:45 Pulse Ox 94 L 09/20/16 10:45 Weight - Most Recent: 133 lb I&O - Last 24 Hours: Intake & Output 09/19/16 09/20/16 09/20/16 22:59 06:59 14:59 Intake Total 480 1210 240 Output Total 400 Balance 480 810 240 Lab Results Last 24 Hours: Laboratory Results - last 24 hr 09/20/16 09/20/16 09/20/16 Range/Units 05:45 05:45 05:45 WBC 12.3 H (4.5-11.0) K/uL RBC 2.48 L (3.30-5.50) M/uL Hgb 7.5 L D (12.0-15.0) g/dL Hct 23.6 L (36.0-48.0) % MCV 95 (80-98) fL MCH 30 (27-31) pg MCHC 32 (32-36) % Plt Count 217 (150-400) K/uL Neut % (Auto) 80 H (36-66) % Lymph % (Auto) 11 L (24-44) % [place] % (Auto) 9 H (2-6) % Eos % (Auto) 0 L (2-4) % Baso % (Auto) 0 (0-1) % Sodium 141 (140-148) mmol/L Potassium 5.2 (3.6-5.2) mmol/L Chloride 110 H (100-108) mmol/L Carbon Dioxide 24 (21-32) mmol/L Anion Gap 12.2 (5.0-14.0) mmol/L BUN 30 H (7-18) mg/dL Creatinine 1.7 H (0.6-1.0) mg/dL Est Cr Clr Drug Dosing 18.44 mL/min Estimated GFR (MDRD) 28 L (>60) Glucose 135 H (74-106) mg/dL Calcium 8.5 (8.5-10.1) mg/dL Total Bilirubin 0.2 (0.2-1.0) mg/dL AST 18 (15-37) U/L ALT 12 (12-78) U/L Alkaline Phosphatase 44 L (46-116) U/L Total Protein 5.3 L (6.4-8.2) g/dL Albumin 2.0 L (3.4-5.0) g/dL Globulin 3.3 (2.3-3.5) g/dL Albumin/Globulin Ratio 0.6 L (1.2-2.2) Blood Type B POSITIVE Gel Antibody Screen Positive A* Crossmatch See Detail Med Orders - Current: Current Medications Acetaminophen (Tylenol Extra Strength) 1,000 mg PO TID [facility] Last Admin: 09/20/16 08:51 Dose: 1,000 mg Al Hydroxide/Mg Hydroxide (Mag-Al Plus) 30 ml PO Q4H PRN PRN Reason: Constipation Amlodipine Besylate (Norvasc) 10 mg PO DAILY [facility] Last Admin: 09/19/16 14:07 Dose: Not Given Aspirin (Aspirin) 81 mg PO DAILY [facility] Last Admin: 09/20/16 08:44 Dose: 81 mg Bisacodyl (Dulcolax) 10 mg PO DAILY PRN PRN Reason: Constipation Citalopram Hydrobromide (Celexa) 20 mg PO DAILY [facility] Last Admin: 09/20/16 08:45 Dose: 20 mg Docusate Sodium (Colace) 100 mg PO BID PRN PRN Reason: Constipation Donepezil HCl (Aricept) 10 mg PO BEDTIME [facility] Last Admin: 09/19/16 21:15 Dose: 10 mg Lactobacillus Rhamnosus (Culturelle) 2 cap PO BID [facility] Last Admin: 09/20/16 08:45 Dose: 2 cap Lisinopril (Prinivil) 2.5 mg PO DAILY [facility] Last Admin: 09/19/16 14:07 Dose: Not Given Lorazepam (Ativan) 0.25 mg PO Q6H PRN PRN Reason: ANXIETY Magnesium Hydroxide (Milk Of Magnesia) 30 ml PO BID PRN PRN Reason: Constipation Melatonin (Melatonin) 9 mg PO BEDTIME [facility] Last Admin: 09/19/16 21:10 Dose: 9 mg Memantine (Namenda) 10 mg PO BID [facility] Last Admin: 09/20/16 08:47 Dose: 10 mg Metoprolol Succinate (Toprol Xl) 25 mg PO DAILY [facility] Last Admin: 09/20/16 08:58 Dose: 25 mg Morphine Sulfate (Morphine) 2 mg IVPUSH Q2H PRN PRN Reason: Pain Last Admin: 09/20/16 08:43 Dose: 2 mg Naloxone HCl (Narcan) 0.1 mg IVPUSH ASDIRECTED PRN PRN Reason: Oversedation Stop: 09/20/16 13:13 Ondansetron HCl (Zofran Odt) 4 mg PO Q6H PRN PRN Reason: Nausea able to take PO Oxycodone HCl (Oxycodone) 5 mg PO Q4H PRN PRN Reason: Pain (moderate 4-6) Last Admin: 09/20/16 11:08 Dose: 5 mg Polyethylene Glycol (Miralax) 17 gm PO DAILY PRN PRN Reason: Constipation Potassium Chloride (Klor-Con M20) 20 meq PO DAILY [facility] Last Admin: 09/20/16 08:47 Dose: 20 meq Senna (Senna) 8.6 mg PO BID PRN PRN Reason: Constipation Senna/Docusate Sodium (Senna Plus) 1 tab PO BID PRN PRN Reason: Constipation Sodium Chloride (Saline Flush) 10 ml FLUSH ASDIRECTED PRN PRN Reason: Keep Vein Open Tramadol HCl (Ultram) 50 mg PO TID [facility] Last Admin: 09/20/16 09:04 Dose: 50 mg Zolpidem Tartrate (Ambien) 5 mg PO BEDTIME PRN PRN Reason: Sleep Discontinued Medications Bupivacaine HCl (Marcaine 0.5%) Confirm Administered Dose 50 ml .ROUTE .STK-MED ONE Stop: 09/19/16 06:04 Last Admin: 09/19/16 11:08 Dose: 20 ml Dexamethasone (Dexamethasone) Confirm Administered Dose 4 mg .ROUTE .STK-MED ONE Stop: 09/19/16 09:27 Diphenhydramine HCl (Benadryl) 25 mg IVPUSH Q4H PRN PRN Reason: Itching Fentanyl (Sublimaze) 25 mcg IM ONETIME ONE Stop: 09/18/16 10:50 Last Admin: 09/18/16 10:57 Dose: 25 mcg Fentanyl (Sublimaze) Confirm Administered Dose 100 mcg .ROUTE .STK-MED ONE Stop: 09/19/16 09:27 Fentanyl (Sublimaze) Confirm Administered Dose 100 mcg .ROUTE .STK-MED ONE Stop: 09/19/16 10:51 Fentanyl (Sublimaze) Confirm Administered Dose 100 mcg .ROUTE .STK-MED ONE Stop: 09/19/16 12:23 Gelatin (Gelfoam) 1 gm .ROUTE .STK-MED ONE Stop: 09/19/16 11:01 Hydromorphone HCl (Dilaudid) 0.5 - 1 mg IVPUSH Q2H PRN PRN Reason: Pain (severe 7-10) Sodium Chloride (Normal Saline) 1,000 mls @ 50 mls/hr IV ASDIRECTED [facility] Last Admin: 09/18/16 17:43 Dose: 50 mls/hr Cefazolin Sodium/Dextrose 2 gm (/ Premix) 50 mls @ 100 mls/hr IV ONCALL ONE Stop: 09/19/16 09:44 Last Admin: 09/19/16 09:15 Dose: 100 mls/hr Acetaminophen (Ofirmev) Confirm Administered Dose 100 mls @ as directed IV .STK- MED ONE Stop: 09/19/16 09:27 Lactated Ringer's (Ringers, Lactated) 1,000 mls @ 100 mls/hr IV ASDIRECTED [facility] Last Admin: 09/20/16 04:54 Dose: 100 mls/hr Cefazolin Sodium 2 gm/ Sodium (Chloride) 50 mls @ 100 mls/hr IV Q8H [facility] Stop: 09/20/16 09:59 Last Admin: 09/20/16 09:03 Dose: 100 mls/hr Ondansetron HCl (Zofran) Confirm Administered Dose 4 mg .ROUTE .STK-MED ONE Stop: 09/19/16 09:27 Pneumococcal Polyvalent Vaccine (Pneumovax 23) 0.5 ml SUBCUT .ONCE ONE Stop: 09/20/16 10:01 Povidone Iodine (Betadine 10% Soln) Confirm Administered Dose 1 ml .ROUTE .STK- MED ONE Stop: 09/19/16 06:04 Last Admin: 09/19/16 11:09 Dose: 1 ml Propofol (Diprivan 20 Ml) Confirm Administered Dose 200 mg .ROUTE .STK-MED ONE Stop: 09/19/16 09:27 Rocuronium [place] (Zemuron) Confirm Administered Dose 50 mg .ROUTE .STK-MED ONE Stop: 09/19/16 09:27 Succinylcholine Chloride (Quelicin) Confirm Administered Dose 200 mg .ROUTE .STK -MED ONE Stop: 09/19/16 09:27 Tramadol HCl (Ultram) 50 mg PO QID [facility] Last Admin: 09/19/16 05:41 Dose: Not Given - Exam Quality Assessment: DVT Prophylaxis General: Alert Lungs: Clear to Auscultation, Normal Respiratory Effort Cardiovascular: Regular Rate, Regular Rhythm GI/Abdominal Exam: Normal Bowel Sounds, Soft, Non-Tender - Problem List Review Problem List Initiated/Reviewed/Updated: Yes - My Orders Last 24 Hours: My Active Orders 09/20/16 05:45 ANTIBODY IDENTIFICATION [BBK] Urgent RED BLOOD CELLS LP [BBK] Urgent TYPE AND SCREEN [BBK] Urgent 09/20/16 08:37 Transfuse Red Blood Cells [COMM] Urgent 09/20/16 11:13 Convert IV to Saline Lock [OM.PC] Routine 09/21/16 05:00 BASIC METABOLIC PANEL,BMP [CHEM] Timed CBC WITH AUTO DIFF [HEME] Timed - Plan Plan:: Assessment and plan - Distal right humerus fracture - status post ORIF on 09/19. Clinically stable and doing fairly well postoperatively. Minimal pain at this time. -pain control -Postoperative cares per orthopedic team Coronary artery disease - she has a history of a myocardial infarction in the setting of sepsis. Clinically doing well at this time. -Blood pressure control and close monitoring of vital signs Alzheimer's dementia - minor agitation, ongoing confusion -Scheduled Tylenol -Scheduled tramadol -As needed oxycodone for severe pain -Melatonin at bedtime Maintenance issues - - DVT prophylaxis - mechanical - GI prophylaxis - PPI - Nutrition - regular diet this evening, nothing by mouth after midnight Disposition - [facility]
[2016-09-20] MEDS: Lisinopril 2.5 MG Tab PO SCH (11:41)
--- NOTE | 2016-09-20 12:46 | CR ---
Tibia Fibula Rt HISTORY: Persistent pain after a fall FINDINGS: Bony structures are diffusely osteopenic. No acute fracture or dislocation is identified. Bony structures are diffusely osteopenic. Right knee arthroplasty is noted. IMPRESSION: Generalized osteopenia. Right knee arthroplasty. No acute right tibia or fibula abnormal ity is identified.
[2016-09-20] MEDS ORDERED: Nystatin Topical Powder 15 GM Bottle TOP PRN (14:00)
--- NOTE | 2016-09-20 16:31 | CR ---
Hip Min 2V or 3V Rt HISTORY: Persistent pain after a fall FINDINGS: No acute fracture or dislocation is identified. Bony structures are diffusely osteopenic. There are mild degenerative changes of the right hip with joint space narrowing and early superior a cetabular osteophyte formation. There is scattered atherosclerotic vascular calcification. Long sten t is noted in the femoral artery. I see no joint effusion. IMPRESSION: Osteopenia. Mild degenerative changes right hip. No acute right hip abnormality is ident ified. Long endovascular stent is noted in the right femoral artery.
--- NOTE | 2016-09-20 16:31 | CR ---
Femur Min 2V Rt HISTORY: Persistent pain after a fall FINDINGS: Bony structures are osteopenic. No acute fracture or dislocation right femur is identified . There is a long vascular stent in the right femoral artery. Bony structures are diffusely osteopen ic. Right knee arthroplasty is noted. IMPRESSION: Osteopenia. Right knee arthroplasty. Atherosclerotic vascular calcification with long en dovascular stent femoral artery. No fracture or other acute abnormality can be identified.
[2016-09-20] MEDS: Donepezil 10 MG Tab PO SCH (20:39)
[2016-09-20] MEDS: Melatonin 3 MG Tab PO SCH (20:40)
[2016-09-21] MEDS: oxyCODONE 5 MG Tab PO PRN ×2 (00:12→08:38)
[2016-09-21 08:16] VITALS: BP 130/58
[2016-09-21] MEDS: Lactobacillus Rhamnosus GG (Probiotic) Cap PO SCH (08:39)
[2016-09-21] MEDS: Potassium Chloride 20 MEQ Tab.ER PO SCH (08:39)
[2016-09-21] MEDS: Citalopram 20 MG Tab PO SCH (08:39)
[2016-09-21] MEDS: Aspirin 81 MG Tab.Chew PO SCH (08:39)
[2016-09-21] MEDS: Lisinopril 2.5 MG Tab PO SCH (08:40)
[2016-09-21] MEDS: amLODIPine 10 MG Tab PO SCH (08:40)
[2016-09-21] MEDS: Memantine 10 MG Tab PO SCH (08:40)
[2016-09-21] MEDS: Metoprolol Succinate 25 MG Tab.ER PO SCH (08:41)
[2016-09-21] MEDS: Acetaminophen 500 MG Tab PO SCH ×2 (08:41→13:05)
[2016-09-21] MEDS: traMADol 50 MG Tab PO SCH (10:00)
[2016-09-21] MEDS ORDERED: Ferrous Sulfate 325 MG Tab PO SCH (11:30)
--- NOTE | 2016-09-21 12:26 | PCM.DCSUM1 ---
Discharge Summary - Hospital Course Brief History: Ms. Romero is an 86-year-old woman was admitted through the emergency department after she fallen and experienced fractures in her right arm. - Discharge Data Discharge Date: 09/21/16 Discharge Disposition: DC/Tfer to SNF 03 Condition: Fair - Discharge Diagnosis/Problem(s) (1) Fracture of right olecranon process SNOMED Code(s): 878158997 ICD Code: S52.021A - DISP FX OF OLECRAN PRO W/O INTARTIC EXTN RIGHT ULNA, INIT Status: Acute Current Visit: Yes Qualifiers: Encounter type: initial encounter Fracture type: closed Qualified Code(s) : S52.021A - Displaced fracture of olecranon process without intraarticular extension of right ulna, initial encounter for closed fracture (2) Right supracondylar humerus fracture SNOMED Code(s): 341056132 ICD Code: S42.411A - DISPL SIMPLE SUPRCNDL FX W/O INTRCNDL FX R HUMERUS, INIT Status: Acute Current Visit: Yes Qualifiers: Encounter type: initial encounter Fracture type: closed Qualified Code(s) : S42.411A - Displaced simple supracondylar fracture without intercondylar fracture of right humerus, initial encounter for closed fracture (3) Dementia SNOMED Code(s): 77669105 ICD Code: F03.90 - UNSPECIFIED DEMENTIA WITHOUT BEHAVIORAL DISTURBANCE Status: Chronic Current Visit: No (4) Anemia SNOMED Code(s): 408244815 ICD Code: D64.9 - ANEMIA, UNSPECIFIED Status: Chronic Current Visit: No - Patient Summary/Data Consults: Consultations 09/18/16 15:18 Consult to Physician [CONS] Routine Consulting Provider: Sidney Carrillo Call Completed to Consulting Physician: Yes Reason for Consult: right humerus fracture Person Notified: Dr Lukasz Carrillo Date Notified: 09/18/16 Special Instructions: planning surgery in the morning 09/20/16 08:46 PT Evaluation and Treatment [CONS] Routine Please Evaluate and Treat. PT Reason for Consult: Strengthening Special Instructions: right arm is to be not evaluated at this time. This query below is only for informational purposes and is not editable. Admission Diagnosis/Problem: Fracture of humerus, proximal, right, closed Hospital Course: Ms. Romero is an 86-year-old woman who resides at [facility] because of severe dementia. On the day of admission she had fallen out of bed and injured her right arm, she was brought into the emergency department for further evaluation. X-rays documented fracture of the right olecranon process as well as a right humerus fracture. She was admitted to the hospital and given IV fluids for hydration as well as pain medication. She was seen and evaluated by Dr. Oleksandr Carrillo for orthopedic consult and was later taken to the operating room for surgical repair the fractures. She did well following the surgery and slowly regain strength prior to discharge. Postoperative course was complicated by anemia and she was transfused one unit of red blood cells. She was also started on iron supplementation for sulfate 325 mg twice daily. On the day of discharge hemoglobin was 7.9, follow-up labs with hemoglobin will be obtained in 3 days. Activity will be as tolerated and she will resume her usual diet. Follow-up appointment has been scheduled with Dr. Carrillo. - Patient Instructions Diet: Usual Diet as Tolerated Activity: As Tolerated Other/Special Instructions: Please obtain follow-up lab in 3 days; CBC. - Discharge Plan Prescriptions/Med Rec: Ferrous Sulfate 325 mg PO BID #60 tablet Home Medications: Home Meds Aspirin [Priyank Chewable Aspirin] 81 mg PO DAILY 01/02/13 [History] Donepezil [Aricept] 10 mg PO BEDTIME 01/02/13 [History] Memantine [Namenda] 10 mg PO BID 01/02/13 [History] Metoprolol Succinate [Toprol XL] 25 mg PO DAILY 01/02/13 [History] Potassium Chloride [Klor-Con] 20 meq PO DAILY 01/02/13 [History] amLODIPine [Norvasc] 10 mg PO DAILY 01/02/13 [History] traMADol [Ultram] 50 mg PO TID 01/02/13 [History] Lactobacillus Combination No.4 [Probiotic] 1 cap PO BID 01/02/14 [History] Liquicel 1 oz PO BID 01/02/14 [History] Lisinopril [Zestril] 2.5 mg PO DAILY 01/02/14 [History] Acetaminophen [Tylenol] 650 mg PO TID 09/18/16 [History] Aspirin 81 mg PO DAILY 09/18/16 [History] Bisacodyl [Dulcolax] 1 supp RECTAL ASDIRECTED PRN 09/18/16 [History] Citalopram Hydrobromide [Celexa] 20 mg PO DAILY 09/18/16 [History] Diclofenac Sodium [Voltaren 1% Gel] 1 applic TP TID 09/18/16 [History] LORazepam [Ativan] 0.25 mg PO Q6H PRN 09/18/16 [History] Lovastatin 10 mg PO DAILY 09/18/16 [History] Magnesium Hydroxide [Milk of Magnesia] 30 ml PO DAILY PRN 09/18/16 [History] Menthol/Zinc Oxide [Calmoseptine] 1 gm TOP TID 09/18/16 [History] Ferrous Sulfate 325 mg PO BID #60 tablet 09/21/16 [Rx] Referrals: PCP,None [Primary Care Provider] - Sidney Carrillo DO [Physician] - 10/11/16 11:00 am (Check in at Hospital ER desk to see [facility]. ) - Patient Data Vitals - Most Recent: Last Vital Signs Temp 97.8 F 09/21/16 08:14 Pulse 70 09/21/16 08:41 Resp 12 09/21/16 08:14 BP 130/58 L 09/21/16 08:41 Pulse Ox 92 L 09/21/16 08:14 Weight - Most Recent: 133 lb I&O - Last 24 hours: Intake & Output 09/20/16 09/21/16 09/21/16 22:59 06:59 14:59 Intake Total 100 681 120 Output Total 200 250 Balance -100 681 -130 Lab Results - Last 24 hrs: Laboratory Results - last 24 hr 09/20/16 09/21/16 09/21/16 Range/Units 05:45 04:50 04:50 WBC 10.9 (4.5-11.0) K/uL RBC 2.56 L (3.30-5.50) M/uL Hgb 7.9 L (12.0-15.0) g/dL Hct 24.5 L (36.0-48.0) % MCV 96 (80-98) fL MCH 31 (27-31) pg MCHC 32 (32-36) % Plt Count 174 (150-400) K/uL Neut % (Auto) 76 H (36-66) % Lymph % (Auto) 13 L (24-44) % [place] % (Auto) 10 H (2-6) % Eos % (Auto) 1 L (2-4) % Baso % (Auto) 0 (0-1) % Sodium 143 (140-148) mmol/L Potassium 4.3 (3.6-5.2) mmol/L Chloride 112 H (100-108) mmol/L Carbon Dioxide 25 (21-32) mmol/L Anion Gap 10.3 (5.0-14.0) mmol/L BUN 30 H (7-18) mg/dL Creatinine 1.5 H (0.6-1.0) mg/dL Est Cr Clr Drug Dosing 20.90 mL/min Estimated GFR (MDRD) 33 L (>60) Glucose 95 (74-106) mg/dL Calcium 8.4 L (8.5-10.1) mg/dL Total Bilirubin 0.2 (0.2-1.0) mg/dL AST 16 (15-37) U/L ALT 7 L (12-78) U/L Alkaline Phosphatase 43 L (46-116) U/L Total Protein 5.3 L (6.4-8.2) g/dL Albumin 2.0 L (3.4-5.0) g/dL Globulin 3.3 (2.3-3.5) g/dL Albumin/Globulin Ratio 0.6 L (1.2-2.2) Blood Type B POSITIVE Gel Antibody Screen Positive A* Antibody Identification Anti-K Crossmatch See Detail Med Orders - Current: Current Medications Acetaminophen (Tylenol Extra Strength) 1,000 mg PO TID [facility] Last Admin: 09/21/16 08:41 Dose: 1,000 mg Al Hydroxide/Mg Hydroxide (Mag-Al Plus) 30 ml PO Q4H PRN PRN Reason: Constipation Amlodipine Besylate (Norvasc) 10 mg PO DAILY [facility] Last Admin: 09/21/16 08:40 Dose: Not Given Aspirin (Aspirin) 81 mg PO DAILY [facility] Last Admin: 09/21/16 08:39 Dose: 81 mg Bisacodyl (Dulcolax) 10 mg PO DAILY PRN PRN Reason: Constipation Citalopram Hydrobromide (Celexa) 20 mg PO DAILY [facility] Last Admin: 09/21/16 08:39 Dose: 20 mg Docusate Sodium (Colace) 100 mg PO BID PRN PRN Reason: Constipation Last Admin: 09/20/16 11:41 Dose: 100 mg Donepezil HCl (Aricept) 10 mg PO BEDTIME [facility] Last Admin: 09/20/16 20:39 Dose: 10 mg Ferrous Sulfate (Ferrous Sulfate) 325 mg PO BIDMEALS [facility] Lactobacillus Rhamnosus (Culturelle) 2 cap PO BID [facility] Last Admin: 09/21/16 08:39 Dose: 2 cap Lisinopril (Prinivil) 2.5 mg PO DAILY [facility] Last Admin: 09/21/16 08:40 Dose: 2.5 mg Lorazepam (Ativan) 0.25 mg PO Q6H PRN PRN Reason: ANXIETY Magnesium Hydroxide (Milk Of Magnesia) 30 ml PO BID PRN PRN Reason: Constipation Melatonin (Melatonin) 9 mg PO BEDTIME [facility] Last Admin: 09/20/16 20:40 Dose: 9 mg Memantine (Namenda) 10 mg PO BID [facility] Last Admin: 09/21/16 08:40 Dose: 10 mg Metoprolol Succinate (Toprol Xl) 25 mg PO DAILY [facility] Last Admin: 09/21/16 08:41 Dose: 25 mg Morphine Sulfate (Morphine) 2 mg IVPUSH Q2H PRN PRN Reason: Pain Last Admin: 09/20/16 08:43 Dose: 2 mg Nystatin (Nystop) 0 gm TOP TID PRN PRN Reason: FUNGAL AREA Last Admin: 09/21/16 00:23 Dose: 1 gm Ondansetron HCl (Zofran Odt) 4 mg PO Q6H PRN PRN Reason: Nausea able to take PO Oxycodone HCl (Oxycodone) 5 mg PO Q4H PRN PRN Reason: Pain (moderate 4-6) Last Admin: 09/21/16 08:38 Dose: 5 mg Polyethylene Glycol (Miralax) 17 gm PO DAILY PRN PRN Reason: Constipation Potassium Chloride (Klor-Con M20) 20 meq PO DAILY [facility] Last Admin: 09/21/16 08:39 Dose: 20 meq Senna (Senna) 8.6 mg PO BID PRN PRN Reason: Constipation Senna/Docusate Sodium (Senna Plus) 1 tab PO BID PRN PRN Reason: Constipation Sodium Chloride (Saline Flush) 10 ml FLUSH ASDIRECTED PRN PRN Reason: Keep Vein Open Tramadol HCl (Ultram) 50 mg PO TID [facility] Last Admin: 09/21/16 10:00 Dose: 50 mg Zolpidem Tartrate (Ambien) 5 mg PO BEDTIME PRN PRN Reason: Sleep Discontinued Medications Bupivacaine HCl (Marcaine 0.5%) Confirm Administered Dose 50 ml .ROUTE .STK-MED ONE Stop: 09/19/16 06:04 Last Admin: 09/19/16 11:08 Dose: 20 ml Dexamethasone (Dexamethasone) Confirm Administered Dose 4 mg .ROUTE .STK-MED ONE Stop: 09/19/16 09:27 Diphenhydramine HCl (Benadryl) 25 mg IVPUSH Q4H PRN PRN Reason: Itching Fentanyl (Sublimaze) 25 mcg IM ONETIME [facility] Stop: 09/18/16 10:50 Last Admin: 09/18/16 10:57 Dose: 25 mcg Fentanyl (Sublimaze) Confirm Administered Dose 100 mcg .ROUTE .STK-MED ONE Stop: 09/19/16 09:27 Fentanyl (Sublimaze) Confirm Administered Dose 100 mcg .ROUTE .STK-MED ONE Stop: 09/19/16 10:51 Fentanyl (Sublimaze) Confirm Administered Dose 100 mcg .ROUTE .STK-MED ONE Stop: 09/19/16 12:23 Gelatin (Gelfoam) 1 gm .ROUTE .STK-MED ONE Stop: 09/19/16 11:01 Hydromorphone HCl (Dilaudid) 0.5 - 1 mg IVPUSH Q2H PRN PRN Reason: Pain (severe 7-10) Sodium Chloride (Normal Saline) 1,000 mls @ 50 mls/hr IV ASDIRECTED [facility] Last Admin: 09/18/16 17:43 Dose: 50 mls/hr Cefazolin Sodium/Dextrose 2 gm (/ Premix) 50 mls @ 100 mls/hr IV ONCALL ONE Stop: 09/19/16 09:44 Last Admin: 09/19/16 09:15 Dose: 100 mls/hr Acetaminophen (Ofirmev) Confirm Administered Dose 100 mls @ as directed IV .STK- MED ONE Stop: 09/19/16 09:27 Lactated Ringer's (Ringers, Lactated) 1,000 mls @ 100 mls/hr IV ASDIRECTED [facility] Last Admin: 09/20/16 04:54 Dose: 100 mls/hr Cefazolin Sodium 2 gm/ Sodium (Chloride) 50 mls @ 100 mls/hr IV Q8H [facility] Stop: 09/20/16 09:59 Last Admin: 09/20/16 09:03 Dose: 100 mls/hr Naloxone HCl (Narcan) 0.1 mg IVPUSH ASDIRECTED PRN PRN Reason: Oversedation Stop: 09/20/16 13:13 Ondansetron HCl (Zofran) Confirm Administered Dose 4 mg .ROUTE .STK-MED ONE Stop: 09/19/16 09:27 Pneumococcal Polyvalent Vaccine (Pneumovax 23) 0.5 ml SUBCUT .ONCE ONE Stop: 09/20/16 10:01 Last Admin: 09/20/16 17:17 Dose: 0.5 ml Povidone Iodine (Betadine 10% Soln) Confirm Administered Dose 1 ml .ROUTE .STK- MED ONE Stop: 09/19/16 06:04 Last Admin: 09/19/16 11:09 Dose: 1 ml Propofol (Diprivan 20 Ml) Confirm Administered Dose 200 mg .ROUTE .STK-MED ONE Stop: 09/19/16 09:27 Rocuronium [place] (Zemuron) Confirm Administered Dose 50 mg .ROUTE .STK-MED ONE Stop: 09/19/16 09:27 Succinylcholine Chloride (Quelicin) Confirm Administered Dose 200 mg .ROUTE .STK -MED ONE Stop: 09/19/16 09:27 Tramadol HCl (Ultram) 50 mg PO QID [facility] Last Admin: 09/19/16 05:41 Dose: Not Given *Q Meaningful Use (DIS) - VTE *Q VTE Criteria *Q: VTE Pharmacological Contraindications *Q: Patient Scheduled Surgery - Stroke *Q Stroke Criteria *Q: - AMI *Q AMI Criteria *Q:
[2016-09-21] MEDS: Morphine 2 MG/ML Syringe IVPUSH PRN (12:48)
== END 2016-09-21 13:07 | DRG 493 ==
LOC: JP.ED 10:20 → JP.MS 14:32
PROVIDERS: ADMIT Internal Medicine; ATTEND Hospitalist
PROC: 0PSF04Z Reposition Right Humeral Shaft with Internal Fixation Device, Open Approach (ICD-10-PCS; principal; 2016-09-19)
PROC: 0PSK04Z Reposition Right Ulna with Internal Fixation Device, Open Approach (ICD-10-PCS; 2016-09-19)
PROC: 01S40ZZ Reposition Ulnar Nerve, Open Approach (ICD-10-PCS; 2016-09-19)
PROC: 30233N1 Transfusion of Nonautologous Red Blood Cells into Peripheral Vein, Percutaneous Approach (ICD-10-PCS; 2016-09-20)
DX: S42.411A Displaced simple supracondylar fracture without intercondylar fracture of right humerus, initial encounter for closed fracture (principal); S00.12XA Contusion of left eyelid and periocular area, initial encounter; D62 Acute posthemorrhagic anemia; Y92.013 Bedroom of single-family (private) house as the place of occurrence of the external cause; S52.021A Displaced fracture of olecranon process without intraarticular extension of right ulna, initial encounter for closed fracture; W06.XXXA Fall from bed, initial encounter; Y92.122 Bedroom in nursing home as the place of occurrence of the external cause; I73.9 Peripheral vascular disease, unspecified; G30.9 Alzheimer's disease, unspecified; F02.80 Dementia in other diseases classified elsewhere, unspecified severity, without behavioral disturbance, psychotic disturbance, mood disturbance, and anxiety; I25.10 Atherosclerotic heart disease of native coronary artery without angina pectoris; I12.9 Hypertensive chronic kidney disease with stage 1 through stage 4 chronic kidney disease, or unspecified chronic kidney disease; N18.9 Chronic kidney disease, unspecified; K21.9 Gastro-esophageal reflux disease without esophagitis; Z88.8 Allergy status to other drugs, medicaments and biological substances; Z79.899 Other long term (current) drug therapy; Z95.5 Presence of coronary angioplasty implant and graft; Z23 Encounter for immunization
CPT/HCPCS: 29105; 73060 ×2; 73200; 99284; 99285; J3010; 36415; 36430; 73502-26-RT; 73502-RT; 73552-26-LT; 73552-RT; 73590-26-RT; 73590-RT; 76001; 80048; 80053; 85025; 85027; 86850; 86870; 86900; 86901; 86902; 86920; 86922; 90732; 97110-GP; 97162-GP; A9270-GY; C1713; G0009; J0131; J0330; J0690; J1100; J2270; J2405; J2704; J7040; J7050; J7120; P9016

== ENCOUNTER 2017-06-06 17:16 | Inpatient (IN) | payer MEDICARE, BC, MEDICAID ==
[2017-06-06] MEDS ORDERED: Lactated Ringers 1,000 ML IV ONE (17:25)
[2017-06-06] MEDS ORDERED: Sodium Chloride 0.9% 10 ML Syringe FLUSH PRN (17:25)
--- NOTE | 2017-06-06 17:33 | EDM.PDOC ---
<Ernst Walters G - Last Filed: 06/06/17 17:33> ED HPI GENERAL MEDICAL PROBLEM - General Chief Complaint: Fever Stated Complaint: ILLNESS VIA AMBULANCE Time Seen by Provider: 06/06/17 17:30 Source of Information: Reports: Patient, EMS, Old Records, RN History Limitations: Reports: No Limitations - History of Present Illness INITIAL COMMENTS - FREE TEXT/NARRATIVE: 87 yo female sent via EMS from a local [facility] for a fever of 103F with decreased mentation. Had acetaminophen before coming to the ER. Had one dose of clindamycin early today for a ? abscess on the buttocks. Has dementia reportedly. Onset: Today Onset Date: 06/06/17 Duration: Hour(s):, Getting Worse Location: Reports: Face (L face below the ear.), Other (L buttocks) Severity: Severe (high fever) Improves with: Reports: None Worsens with: Reports: Other (? time) Context: Reports: Other (? boil on buttock and tender L face, otherwise not known) Associated Symptoms: Reports: Fever/Chills Treatments CARPENTERS: Reports: Acetaminophen, Other (see below) (one dose of oral clindamycin) - Related Data Allergies Allergy/AdvReac Type Severity Reaction Status Date / Time diclofenac [Diclofenac] Allergy Unknown Cannot Verified 01/02/14 20:42 Remember ibuprofen Allergy Unknown Cannot Verified 01/02/14 20:43 Remember simvastatin [From Zocor] Allergy Unknown Cannot Verified 01/02/14 20:43 Remember Home Meds: Home Meds Donepezil [Aricept] 10 mg PO BEDTIME 01/02/13 [History] Memantine [Namenda] 10 mg PO BID 01/02/13 [History] Metoprolol Succinate [Toprol XL] 25 mg PO DAILY 01/02/13 [History] amLODIPine [Norvasc] 10 mg PO DAILY 01/02/13 [History] traMADol [Ultram] 50 mg PO TID 01/02/13 [History] Lactobacillus Combination No.4 [Probiotic] 1 cap PO BID 01/02/14 [History] Lisinopril [Zestril] 2.5 mg PO DAILY 01/02/14 [History] Acetaminophen [Tylenol] 650 mg PO TID 09/18/16 [History] Aspirin 81 mg PO DAILY 09/18/16 [History] Bisacodyl [Dulcolax] 1 supp RECTAL ASDIRECTED PRN 09/18/16 [History] Citalopram Hydrobromide [Celexa] 20 mg PO DAILY 09/18/16 [History] Calcium Carb/Vit D3/Minerals [Cvs Calcium Chewables Plus Tab] 1 tab IA 06/06/17 [History] Clindamycin HCl [Cleocin] 300 mg PO QID 06/06/17 [History] Sennosides/Docusate Sodium [Senna-Docusate Sodium] 2 tab PO DAILY 06/06/17 [ History] Past Medical History Cardiovascular History: Reports: CAD, Hypertension, PVD Gastrointestinal History: Reports: Chronic Constipation, GERD Genitourinary History: Reports: Other (See Below) Other Genitourinary History: chronic kidney disease REVIEW NURSE History: Reports: , Other (See Below) Other OB/BYN History: ovarian cyst Psychiatric History: Reports: Alzheimers Disease, Dementia Hematologic History: Reports: Anemia Dermatologic History: Reports: Cellulitis - Infectious Disease History Infectious Disease History: Reports: Chicken Pox, Measles, Mumps - Past Surgical History Cardiovascular Surgical History: Reports: Coronary Artery Stent GI Surgical History: Reports: Hernia Repair/Other Female Surgical History: Reports: Hysterectomy Musculoskeletal Surgical History: Reports: Knee Replacement, Other (See Below) Other Musculoskeletal Surgeries/Procedures:: hip surgery Social & Family History - Family History Neurological: Reports: Alzheimers Disease Oncologic: Reports: Lung - Tobacco Use Smoking Status *Q: Never Smoker Years of Tobacco use: 50 Packs/Tins Daily: 1 Used Tobacco, but Quit: Yes Month/Year Tobacco Last Used: 1977 Second Hand Smoke Exposure: No - Caffeine Use Caffeine Use: Reports: Coffee Caffeine Use Comment: 1 cup /day - Alcohol Use Days Per Week of Alcohol Use: 0 - Recreational Drug Use Recreational Drug Use: No ED ROS GENERAL - Review of Systems Review Of Systems: Unable To Obtain (due to dementia) Constitutional: Reports: Fever Neurological: Reports: Other (less alert) ED EXAM, SEPSIS - Physical Exam Exam: See Below Exam Limited By: No Limitations General Appearance: Alert, WD/WN, No Apparent Distress Eye Exam: Bilateral Eye: Normal Inspection Ears: Normal External Exam, Normal Canal, Other (indurated, firm area below the L ear, no erythema) Throat/Mouth: Normal Lips, No Airway Compromise, Other (won't let me look in her mouth) Head: Atraumatic, Normocephalic Neck: Normal Inspection Respiratory/Chest: No Respiratory Distress, Lungs Clear, Normal Breath Sounds, No Accessory Muscle Use Cardiovascular: Regular Rate, Rhythm, No Edema Extremities: Normal Inspection, Normal Range of Motion, Non-Tender, No Pedal Edema Neurological: No Motor/Sensory Deficits, Confused, Slow to Respond Skin: Warm, Dry, Intact, Other (abscess L buttock) Lymphatic: Bilateral: No Adenopathy Course - Vital Signs Last Recorded V/S: Last Vital Signs Temp 99.4 F 06/06/17 18:45 Pulse 77 06/06/17 18:45 Resp 16 06/06/17 18:45 BP 167/63 H 06/06/17 18:45 Pulse Ox 93 L 06/06/17 18:45 - Orders/Labs/Meds Orders: Active Orders 24 hr Category Date Time Status Vital Signs [RC] Q1H Care 06/06/17 18:45 Active Chest 1V Frontal [CR] Stat Exams 06/06/17 17:37 Taken Soft Tissue Neck wo Cont [CT] Stat Exams 06/06/17 18:49 Ordered CULTURE BLOOD [BC] Stat Lab 06/06/17 17:30 Ordered CULTURE BLOOD [BC] Stat Lab 06/06/17 17:45 Ordered UA W/MICROSCOPIC [URIN] Stat Lab 06/06/17 17:22 Ordered Piperacillin/Tazobactam [Zosyn] 4.5 gm Med 06/06/17 18:45 Active Sodium Chloride 0.9% [Normal Saline] 100 ml IV Q6H Sodium Chloride 0.9% [Saline Flush] Med 06/06/17 17:25 Active 10 ml FLUSH ASDIRECTED PRN Blood Culture x2 Reflex Set [OM.PC] Urgent Oth 06/06/17 18:07 Ordered Saline Lock Insert [OM.PC] Routine Oth 06/06/17 17:25 Ordered Medication Orders Piperacillin Sod/Tazobactam (Sod 4.5 gm/ Sodium Chloride) 100 mls @ 200 mls/hr IV Q6H BAHMAN Last Admin: 06/06/17 19:03 Dose: 200 mls/hr Sodium Chloride (Saline Flush) 10 ml FLUSH ASDIRECTED PRN PRN Reason: Keep Vein Open Last Admin: 06/06/17 18:00 Dose: 10 ml Labs: Laboratory Tests 06/06/17 06/06/17 06/06/17 Range/Units 17:45 17:45 17:45 WBC 27.1 H (4.5-11.0) K/uL RBC 3.90 (3.30-5.50) M/uL Hgb 12.5 (12.0-15.0) g/dL Hct 38.0 (36.0-48.0) % MCV 97 (80-98) fL MCH 32 H (27-31) pg MCHC 33 (32-36) % Plt Count 275 (150-400) K/uL Sodium 143 (140-148) mmol/L Potassium 4.1 (3.6-5.2) mmol/L Chloride 106 (100-108) mmol/L Carbon Dioxide 26 (21-32) mmol/L Anion Gap 11.5 (5.0-14.0) mmol/L BUN 29 H (7-18) mg/dL Creatinine 1.6 H (0.6-1.0) mg/dL Est Cr Clr Drug Dosing 21.77 mL/min Estimated GFR (MDRD) 30 L (>60) Glucose 155 H (74-106) mg/dL Lactic Acid 1.9 (0.4-2.0) mmol/L Calcium 10.4 H (8.5-10.1) mg/dL Meds: Medications Generic Name Dose Route Start Last Admin Trade Name Freq PRN Reason Stop Dose Admin Piperacillin Sod/Tazobactam 100 mls @ 200 mls/hr 06/06/17 18:45 06/06/17 19: 03 Sod 4.5 gm/ Sodium Chloride IV 200 mls/hr Q6H BAHMAN Administration Sodium Chloride 10 ml 06/06/17 17:25 06/06/17 18:00 Saline Flush FLUSH 10 ml ASDIRECTED PRN Administration Keep Vein Open Discontinued Medications Generic Name Dose Route Start Last Admin Trade Name Freq PRN Reason Stop Dose Admin Lactated Ringer's 1,000 mls @ 1,000 mls/hr 06/06/17 17:25 06/06/17 17:59 Ringers, Lactated IV 06/06/17 18:24 1,000 mls/hr BOLUS ONE Administration Departure - Departure Disposition: Admitted As Inpatient 65 Clinical Impression: Sepsis Qualifiers: Sepsis type: sepsis due to unspecified organism Qualified Code(s): A41.9 - Sepsis, unspecified organism - Discharge Information Referrals: Freddie Padilla MD [Primary Care Provider] - Forms: ED Department Discharge - My Orders Last 24 Hours: My Active Orders 06/06/17 18:45 Vital Signs [RC] Q1H Piperacillin/Tazobactam [Zosyn] 4.5 gm Sodium Chloride 0.9% [Normal Saline] 100 ml IV Q6H 06/06/17 18:49 Soft Tissue Neck wo Cont [CT] Stat - Assessment/Plan Last 24 Hours: My Active Orders 06/06/17 18:45 Vital Signs [RC] Q1H Piperacillin/Tazobactam [Zosyn] 4.5 gm Sodium Chloride 0.9% [Normal Saline] 100 ml IV Q6H 06/06/17 18:49 Soft Tissue Neck wo Cont [CT] Stat <GeorgerErrol - Last Filed: 06/06/17 19:28> Departure - Departure Time of Disposition: 19:27 Condition: Fair - Assessment/Plan Plan: Assessment Acuity = acute Site and laterality = probable early sepsis unclear source Etiology = skin source versus lung Manifestations = confusion Location of injury = Home Lab values = WBC elevated 27.1 consistent leukocytosis, creatinine elevated 1.6 consistent with chronic renal failure stage G IIIB lactic acid normal at 1.8 Plan Called discussed case with hospitalist over the horizon targeting supervisor he agreed to come and evaluate the patient emergency department for admission, she has received 1 L of fluids and 1 dose of Zosyn urinalysis pending blood cultures are pending This note was dictated using [employer] voice recognition software please call with any questions on syntax or katy.
[2017-06-06] MEDS ORDERED: Piperacillin/Tazobactam 4.5 GM in Sodium Chloride 0.9% 100 ML IV SCH (18:45)
--- NOTE | 2017-06-06 20:10 | PCM.HP ---
H&P History of Present Illness - General Date of Service: 06/06/17 Admit Problem/Dx: Admission Diagnosis/Problem Admission Diagnosis/Problem Parotitis Source of Information: Family, Provider. No: Patient History Limitations: Reports: Altered Mental Status (advanced dementia) - History of Present Illness Initial Comments - Free Text/Narative: Atiya was brought to the emergency room today from the local long term with a fever of 103. The patient has advanced dementia and is unable to provide any reliable history regarding recent events. Her daughter reports that she saw the patient 2 days ago and everything seemed to be going okay. Over the weekend they discovered an abscess on her left buttocks and antibiotics were initiated this morning. The patient has not been eating well but this is not a new difficulty. She has been losing approximately 1 pound a week though things have stabilized in recent weeks. She has no appetite. She is currently endorsing some lower abdominal pain but is unable to describe it further. She does not feel short of breath. She does complain of pain in her left cheek and neck area but is unable to describe it. She is not sure of her last bowel movement. In the emergency room she was noted to have a fever of 39.1. Laboratory studies revealed a white blood cell count of 27,000 and her creatinine is 1.6. CT scan of the soft tissues of the neck suggestive of left-sided parotid gland infection. Chest x-ray did not suggest pneumonia. Urine sample is pending. She will be admitted for management of parotid gland infection and abscess management. - Related Data Allergies/Adverse Reactions: Allergies Allergy/AdvReac Type Severity Reaction Status Date / Time diclofenac [Diclofenac] Allergy Unknown Cannot Verified 01/02/14 20:42 Remember ibuprofen Allergy Unknown Cannot Verified 01/02/14 20:43 Remember simvastatin [From Zocor] Allergy Unknown Cannot Verified 01/02/14 20:43 Remember Home Medications: Home Meds Donepezil [Aricept] 10 mg PO BEDTIME 01/02/13 [History] Memantine [Namenda] 10 mg PO BID 01/02/13 [History] Metoprolol Succinate [Toprol XL] 25 mg PO DAILY 01/02/13 [History] amLODIPine [Norvasc] 10 mg PO DAILY 01/02/13 [History] traMADol [Ultram] 50 mg PO TID 01/02/13 [History] Lactobacillus Combination No.4 [Probiotic] 1 cap PO BID 01/02/14 [History] Lisinopril [Zestril] 2.5 mg PO DAILY 01/02/14 [History] Acetaminophen [Tylenol] 650 mg PO TID 09/18/16 [History] Aspirin 81 mg PO DAILY 09/18/16 [History] Bisacodyl [Dulcolax] 1 supp RECTAL ASDIRECTED PRN 09/18/16 [History] Citalopram Hydrobromide [Celexa] 20 mg PO DAILY 09/18/16 [History] Calcium Carb/Vit D3/Minerals [Cvs Calcium Chewables Plus Tab] 1 tab IA 06/06/17 [History] Clindamycin HCl [Cleocin] 300 mg PO QID 06/06/17 [History] Sennosides/Docusate Sodium [Senna-Docusate Sodium] 2 tab PO DAILY 06/06/17 [ History] Past Medical History Cardiovascular History: Reports: CAD, Hypertension, PVD Gastrointestinal History: Reports: Chronic Constipation, GERD Genitourinary History: Reports: Other (See Below) Other Genitourinary History: chronic kidney disease E TAILER History: Reports: , Other (See Below) Other OB/BYN History: ovarian cyst Psychiatric History: Reports: Alzheimers Disease, Dementia Hematologic History: Reports: Anemia Dermatologic History: Reports: Cellulitis - Infectious Disease History Infectious Disease History: Reports: Chicken Pox, Measles, Mumps - Past Surgical History Cardiovascular Surgical History: Reports: Coronary Artery Stent GI Surgical History: Reports: Hernia Repair/Other Female Surgical History: Reports: Hysterectomy Musculoskeletal Surgical History: Reports: Knee Replacement, Other (See Below) Other Musculoskeletal Surgeries/Procedures:: hip surgery Social & Family History - Family History Neurological: Reports: Alzheimers Disease Oncologic: Reports: Lung - Tobacco Use Smoking Status *Q: Never Smoker Years of Tobacco use: 50 Packs/Tins Daily: 1 Used Tobacco, but Quit: Yes Month/Year Tobacco Last Used: 1977 Second Hand Smoke Exposure: No - Caffeine Use Caffeine Use: Reports: Coffee Caffeine Use Comment: 1 cup /day - Alcohol Use Days Per Week of Alcohol Use: 0 - Recreational Drug Use Recreational Drug Use: No H&P Review of Systems - Review of Systems: Review Of Systems: Unable To Obtain (Advanced dementia) Exam - Exam Exam: See Below - Vital Signs Vital Signs: Last Vital Signs Temp 37.4 C 06/06/17 18:45 Pulse 77 06/06/17 18:45 Resp 16 06/06/17 18:45 BP 167/63 H 06/06/17 18:45 Pulse Ox 93 L 06/06/17 18:45 Weight: 56.744 kg - Exam Quality Assessment: No: Supplemental Oxygen General: Alert, Cooperative, Lethargic. No: Oriented HEENT: Conjunctiva Clear. No: Mucosa Moist & Dunlap (dry), Scleral Icterus Neck: Supple, Trachea Midline. No: Lymphadenopathy Lungs: Clear to Auscultation, Normal Respiratory Effort Cardiovascular: Regular Rate, Regular Rhythm. No: Systolic Murmur GI/Abdominal Exam: Normal Bowel Sounds, Soft, No Distention, Tender (Mild suprapubic and right lower quadrant pain) Back Exam: Normal Inspection, Full Range of Motion Extremities: No Pedal Edema. No: Increased Warmth Peripheral Pulses: 1+: Dorsalis Pedis (L), Dorsalis Pedis (R) Skin: Warm, Dry, Wound (Draining abscess left buttocks with surrounding erythema and induration measuring approximately 2 cm in diameter), Decubitis ( Erythema of the right upper buttocks near the gluteal fold) Neuro Extensive - Mental Status: Alert, Slow Response to Commands. No: Oriented x3 Neuro Extensive - Motor, Sensory, Reflexes: No: Dysarthria, Tremor Psychiatric: Alert. No: Anxious - Patient Data Lab Results Last 24 hrs: Laboratory Results - last 24 hr 06/06/17 06/06/17 06/06/17 Range/Units 17:45 17:45 17:45 WBC 27.1 H (4.5-11.0) K/uL RBC 3.90 (3.30-5.50) M/uL Hgb 12.5 (12.0-15.0) g/dL Hct 38.0 (36.0-48.0) % MCV 97 (80-98) fL MCH 32 H (27-31) pg MCHC 33 (32-36) % Plt Count 275 (150-400) K/uL Sodium 143 (140-148) mmol/L Potassium 4.1 (3.6-5.2) mmol/L Chloride 106 (100-108) mmol/L Carbon Dioxide 26 (21-32) mmol/L Anion Gap 11.5 (5.0-14.0) mmol/L BUN 29 H (7-18) mg/dL Creatinine 1.6 H (0.6-1.0) mg/dL Est Cr Clr Drug Dosing 21.77 mL/min Estimated GFR (MDRD) 30 L (>60) Glucose 155 H (74-106) mg/dL Lactic Acid 1.9 (0.4-2.0) mmol/L Calcium 10.4 H (8.5-10.1) mg/dL Result Diagrams: 06/06/17 17:45 06/06/17 17:45 Imaging Impressions Last 24 hrs: Chest x-ray - images personally reviewed - blunting of the right costophrenic angle but no obvious infiltrate. Heart size is normal. No left-sided effusion. CT scan of the neck/soft tissue - images also personally reviewed - there is evidence for inflammation and stranding involving the left parotid gland. I don' t see an obvious stone or abscess but final radiology read is pending. *Q Meaningful Use (ADM) - VTE Risk Assess *Q Each Risk Factor Represents 1 Point: None Total Score 1 Point Risk Factors: 0 Each Risk Factor Represents 2 Points: None Total Score 2 Point Risk Factors: 0 Each Risk Factor Represents 3 Points: Age 75 Years or Greater Total Score 3 Point Risk Factors: 3 Each Risk Factor Represents 5 Points: None Total Score 5 Point Risk Factors: 0 Venous Thromboembolism Risk Factor Score *Q: 3 - Problem List (1) Suppurative parotitis SNOMED Code(s): 94263093 ICD Code: K11.20 - SIALOADENITIS, UNSPECIFIED Status: Acute Current Visit : Yes (2) Abscess of buttock, left SNOMED Code(s): 30277553 ICD Code: L02.31 - CUTANEOUS ABSCESS OF BUTTOCK Status: Acute Current Visit: Yes (3) Acute kidney injury SNOMED Code(s): 39209576 ICD Code: N17.9 - ACUTE KIDNEY FAILURE, UNSPECIFIED Status: Acute Current Visit: Yes (4) Alzheimer's dementia without behavioral disturbance SNOMED Code(s): 66850906 ICD Code: G30.9 - ALZHEIMER'S DISEASE, UNSPECIFIED; F02.80 - DEMENTIA IN OTH DISEASES CLASSD ELSWHR W/O BEHAVRL DISTURB Status: Chronic Current Visit: Yes Qualifiers: Alzheimer's disease onset: late-onset Qualified Code(s): G30.1 - Alzheimer' s disease with late onset; F02.80 - Dementia in other diseases classified elsewhere without behavioral disturbance Problem List Initiated/Reviewed/Updated: Yes Orders Last 24hrs: Active Orders 24 hr Category Date Time Status Patient Status Manage Transfer [TRANSFER] Routine ADT 06/06/17 19:54 Ordered Vital Signs [RC] Q1H Care 06/06/17 18:45 Active Chest 1V Frontal [CR] Stat Exams 06/06/17 17:37 Taken Soft Tissue Neck wo Cont [CT] Stat Exams 06/06/17 18:49 Taken CULTURE BLOOD [BC] Stat Lab 06/06/17 17:30 Ordered CULTURE BLOOD [BC] Stat Lab 06/06/17 17:45 Ordered UA W/MICROSCOPIC [URIN] Stat Lab 06/06/17 20:03 Ordered Piperacillin/Tazobactam [Zosyn] 4.5 gm Med 06/06/17 18:45 Active Sodium Chloride 0.9% [Normal Saline] 100 ml IV Q6H Sodium Chloride 0.9% [Normal Saline] 1,000 ml Med 06/06/17 20:00 Active IV ASDIRECTED Sodium Chloride 0.9% [Saline Flush] Med 06/06/17 17:25 Active 10 ml FLUSH ASDIRECTED PRN Blood Culture x2 Reflex Set [OM.PC] Urgent Oth 06/06/17 18:07 Ordered Saline Lock Insert [OM.PC] Routine Oth 06/06/17 17:25 Ordered Resuscitation Status Routine Resus Stat 06/06/17 19:56 Ordered Medication Orders Piperacillin Sod/Tazobactam (Sod 4.5 gm/ Sodium Chloride) 100 mls @ 200 mls/hr IV Q6H BAHMAN Last Admin: 06/06/17 19:03 Dose: 200 mls/hr Sodium Chloride (Normal Saline) 1,000 mls @ 100 mls/hr IV ASDIRECTED BAHMAN Sodium Chloride (Saline Flush) 10 ml FLUSH ASDIRECTED PRN PRN Reason: Keep Vein Open Last Admin: 06/06/17 18:00 Dose: 10 ml Assessment/Plan Comment:: ASSESSMENT AND PLAN - Left suppurative parotits - final CT read pending but no obvious stone or abscess. Significant inflammation and swelling. White blood cell count is 27, 000. Given her advanced age and dehydration she is at high risk for complications. Pt does not currently have evidence for sepsis. -Vancomycin and Pip/Tazo -IV fluids -Follow-up blood cultures -Pain control -follow up final read from the CT scan -Lemon drops Left buttocks abscess with cellulitis - Surrounding induration and erythema. No impressive drainage at this time and no underlying fluctuance. -Antibiotics as above -Surgical consultation in the morning Acute kidney injury - Creatinine of 1.6 at the time of presentation. Patient appears dehydrated. -IV fluids -Repeat labs in the morning Coronary artery disease - history of. Patient does not report active symptoms. Blood pressure stable and she has a high risk for developing sepsis. -Hold calcium channel jasmin and OSEI inhibitor, reassess in the morning Continue beta jasmin- Late onset Alzheimer's dementia - No behavior issues at this time. -Melatonin at bedtime Maintenance issues - - DVT prophylaxis - enoxaparin - GI prophylaxis - not indicated - Nutrition - mechanical soft diet - Maldonado catheter - not indicated CODE STATUS - DNR/DNI Admission justification - This patient will be admitted for inpatient services and is medically appropriate meeting medical necessity for inpatient admission as outlined in my documentation. I reasonably expect the patient will require inpatient services that span a period time over 2 midnights. I reasonably expect this patient to be discharged or transferred within 96 hours [facility] Disposition - anticipate discharge back to the long term after the hospital stay Primary care physician - Dr Randy Keating M.D.
[2017-06-06] MEDS ORDERED: Ondansetron 4 MG/2 ML SDV IV PRN (21:01)
[2017-06-06] MEDS ORDERED: Ondansetron 4 MG Tab.DIS PO PRN (21:01)
[2017-06-06] MEDS ORDERED: Polyethylene Glycol 3350 Powder 17 GM Packet PO PRN (21:01)
[2017-06-06] MEDS: Sodium Chloride 0.9% 1,000 ML IV SCH (21:04)
[2017-06-06] MEDS: Donepezil 10 MG Tab PO SCH (21:58)
[2017-06-06] MEDS: traMADol 50 MG Tab PO SCH (21:58)
[2017-06-06] MEDS: Acetaminophen 325 MG Tab PO SCH (21:58)
[2017-06-06] MEDS: Lactobacillus Rhamnosus GG (Probiotic) Cap PO SCH (21:58)
[2017-06-06] MEDS: Memantine 10 MG Tab PO SCH (21:58)
[2017-06-07] MEDS ORDERED: Piperacillin/Tazobactam 2.25 GM in Sodium Chloride 0.9% 50 ML IV SCH (02:00)
[2017-06-07] MEDS: Acetaminophen 325 MG Tab PO SCH ×4 (05:17→21:01)
--- NOTE | 2017-06-07 08:31 | CR ---
Chest 1V Frontal HISTORY: high fever COMPARISON: 01/02/2013 FINDINGS: Portable chest, 1751 hours. Lungs appear clear and normally aerated. Cardiomediastinal silhouette is within normal limits. Athero sclerotic aorta is redemonstrated. No vascular redistribution or pleural fluid can be seen. Bony stru ctures are diffusely osteopenic. Degenerative changes both shoulders are redemonstrated. There are de generative changes diffusely along the thoracic spine. IMPRESSION: No acute chest abnormality or significant interval change is identified.
[2017-06-07] MEDS ORDERED: Dimethicone 20%/Zinc Oxide 25% 56 GM Spray Bottle TOP PRN (08:33)
[2017-06-07] MEDS: Sodium Chloride 0.9% 1,000 ML IV SCH ×2 (08:58→20:16)
[2017-06-07] MEDS: Piperacillin/Tazobactam 2.25 GM in Sodium Chloride 0.9% 50 ML IV SCH ×3 (09:33→20:28)
[2017-06-07] MEDS: Enoxaparin 30 MG/0.3 ML Syringe SUBCUT SCH (09:33)
--- NOTE | 2017-06-07 10:16 | PCM.PN ---
- General Info Date of Service: 06/07/17 - Review of Systems General: Reports: Fever HEENT: Reports: Other (left neck pain) Gastrointestinal: Denies: Abdominal Pain Systems Review Comment:: There were no acute events overnight. The patient did have a fever this morning but her blood pressure and heart rate have been stable. She thinks the cheek pain is a little better but history is difficult with her dementia. She has not had any fevers. Tolerating antibiotics. Kidney function slightly better today after fluids overnight. - Patient Data Vitals - Most Recent: Last Vital Signs Temp 38.5 C H 06/07/17 06:03 Pulse 85 06/07/17 04:00 Resp 20 06/07/17 04:00 BP 152/70 H 06/07/17 04:00 Pulse Ox 95 06/07/17 04:00 Weight - Most Recent: 56.291 kg I&O - Last 24 Hours: Intake & Output 06/06/17 06/07/17 06/07/17 22:59 06:59 14:59 Intake Total 250 700 Balance 250 700 Lab Results Last 24 Hours: Laboratory Results - last 24 hr 06/06/17 06/06/17 06/06/17 Range/Units 17:45 17:45 17:45 WBC 27.1 H (4.5-11.0) K/uL RBC 3.90 (3.30-5.50) M/uL Hgb 12.5 (12.0-15.0) g/dL Hct 38.0 (36.0-48.0) % MCV 97 (80-98) fL MCH 32 H (27-31) pg MCHC 33 (32-36) % Plt Count 275 (150-400) K/uL Sodium 143 (140-148) mmol/L Potassium 4.1 (3.6-5.2) mmol/L Chloride 106 (100-108) mmol/L Carbon Dioxide 26 (21-32) mmol/L Anion Gap 11.5 (5.0-14.0) mmol/L BUN 29 H (7-18) mg/dL Creatinine 1.6 H (0.6-1.0) mg/dL Est Cr Clr Drug Dosing 21.77 mL/min Estimated GFR (MDRD) 30 L (>60) Glucose 155 H (74-106) mg/dL Lactic Acid 1.9 (0.4-2.0) mmol/L Calcium 10.4 H (8.5-10.1) mg/dL C-Reactive Protein (0.0-0.3) mg/dL Urine Color Urine Appearance Urine pH (4.5-8.0) Ur Specific [place] (1.008-1.030) Urine Protein (NEGATIVE) mg/dL Urine Glucose (UA) (NEGATIVE) mg/dL Urine Ketones (NEGATIVE) mg/dL Urine Occult Blood (NEGATIVE) Urine Nitrite (NEGATIVE) Urine Bilirubin (NEGATIVE) Urine Urobilinogen (NORMAL) mg/dL Ur Leukocyte Esterase (NEGATIVE) Urine RBC (0-5) Urine WBC (0-5) Ur Epithelial Cells Amorphous Sediment Urine Bacteria Urine Mucus 06/06/17 06/07/17 06/07/17 Range/Units 20:03 04:50 04:50 WBC 35.0 H* (4.5-11.0) K/uL RBC 3.81 (3.30-5.50) M/uL Hgb 11.8 L (12.0-15.0) g/dL Hct 36.8 (36.0-48.0) % MCV 97 (80-98) fL MCH 31 (27-31) pg MCHC 32 (32-36) % Plt Count 334 (150-400) K/uL Sodium 144 (140-148) mmol/L Potassium 3.7 (3.6-5.2) mmol/L Chloride 109 H (100-108) mmol/L Carbon Dioxide 23 (21-32) mmol/L Anion Gap 15.7 H (5.0-14.0) mmol/L BUN 21 H (7-18) mg/dL Creatinine 1.4 H (0.6-1.0) mg/dL Est Cr Clr Drug Dosing 24.68 mL/min Estimated GFR (MDRD) 35 L (>60) Glucose 141 H (74-106) mg/dL Lactic Acid (0.4-2.0) mmol/L Calcium 9.4 (8.5-10.1) mg/dL C-Reactive Protein 24.02 H (0.0-0.3) mg/dL Urine Color Yellow Urine Appearance Cloudy Urine pH 6.0 (4.5-8.0) Ur Specific [place] 1.015 (1.008-1.030) Urine Protein 100 H (NEGATIVE) mg/dL Urine Glucose (UA) Normal (NEGATIVE) mg/dL Urine Ketones Negative (NEGATIVE) mg/dL Urine Occult Blood Negative (NEGATIVE) Urine Nitrite Negative (NEGATIVE) Urine Bilirubin Negative (NEGATIVE) Urine Urobilinogen Normal (NORMAL) mg/dL Ur Leukocyte Esterase Negative (NEGATIVE) Urine RBC Not seen (0-5) Urine WBC 5-10 H (0-5) Ur Epithelial Cells Rare Amorphous Sediment Not seen Urine Bacteria Many Urine Mucus Not seen Med Orders - Current: Current Medications Acetaminophen (Tylenol) 650 mg PO QID [facility] Last Admin: 06/07/17 05:17 Dose: 650 mg Aspirin (Aspirin) 81 mg PO DAILY [facility] Citalopram Hydrobromide (Celexa) 20 mg PO DAILY [facility] Dimethicone/Zinc Oxide (Rash Relief-Zinc Oxide [place]) 0 gm TOP ASDIRECTED PRN PRN Reason: Rash Donepezil HCl (Aricept) 10 mg PO BEDTIME [facility] Last Admin: 06/06/17 21:58 Dose: 10 mg Enoxaparin Sodium (Lovenox) 30 mg SUBCUT DAILY [facility] Last Admin: 06/07/17 09:33 Dose: 30 mg Sodium Chloride (Normal Saline) 1,000 mls @ 100 mls/hr IV ASDIRECTED [facility] Last Admin: 06/07/17 08:58 Dose: 100 mls/hr Vancomycin HCl 1 gm/ Sodium (Chloride) 250 mls @ 150 mls/hr IV Q24H [facility] Last Admin: 06/06/17 21:37 Dose: 150 mls/hr Piperacillin Sod/Tazobactam (Sod 2.25 gm/ Sodium Chloride) 50 mls @ 100 mls/hr IV Q6H [facility] Last Admin: 06/07/17 09:33 Dose: 100 mls/hr Potassium Chloride 20 meq/Lidocaine HCl 2 ml/ Sodium Chloride 112 mls @ 56 mls/ hr IV Q2H [facility] Stop: 06/07/17 13:59 Lactobacillus Rhamnosus (Culturelle) 1 cap PO BID [facility] Last Admin: 06/06/17 21:58 Dose: 1 cap Memantine (Namenda) 10 mg PO BID [facility] Last Admin: 06/06/17 21:58 Dose: 10 mg Metoprolol Succinate (Toprol Xl) 25 mg PO DAILY [facility] Ondansetron HCl (Zofran Odt) 4 mg PO Q6H PRN PRN Reason: Nausea able to take PO Ondansetron HCl (Zofran) 4 mg IV Q6H PRN PRN Reason: Nausea/Vomiting Polyethylene Glycol (Miralax) 17 gm PO DAILY PRN PRN Reason: Constipation Senna/Docusate Sodium (Senna Plus) 2 tab PO DAILY [facility] Sodium Chloride (Saline Flush) 10 ml FLUSH ASDIRECTED PRN PRN Reason: Keep Vein Open Last Admin: 06/06/17 18:00 Dose: 10 ml Tramadol HCl (Ultram) 50 mg PO TID [facility] Last Admin: 06/06/17 21:58 Dose: 50 mg Discontinued Medications Lactated Ringer's (Ringers, Lactated) 1,000 mls @ 1,000 mls/hr IV BOLUS ONE Stop: 06/06/17 18:24 Last Admin: 06/06/17 17:59 Dose: 1,000 mls/hr Piperacillin Sod/Tazobactam (Sod 4.5 gm/ Sodium Chloride) 100 mls @ 200 mls/hr IV Q6H [facility] Last Admin: 06/06/17 19:03 Dose: 200 mls/hr Piperacillin Sod/Tazobactam (Sod 2.25 gm/ Sodium Chloride) 50 mls @ 100 mls/hr IV Q6H [facility] Last Admin: 06/07/17 01:30 Dose: 100 mls/hr - Exam Quality Assessment: No: Supplemental Oxygen General: Alert, Cooperative, No Acute Distress. No: Oriented HEENT: Other (left cheek and neck swelling around parotid. There is warmth and tenderness of this area) Lungs: Clear to Auscultation, Normal Respiratory Effort Cardiovascular: Regular Rate, Regular Rhythm GI/Abdominal Exam: Normal Bowel Sounds, Soft, Non-Tender Extremities: No Pedal Edema Psy/Mental Status: Alert, Normal Affect - Problem List & Annotations (1) Suppurative parotitis SNOMED Code(s): 83934387 Code(s): K11.20 - SIALOADENITIS, UNSPECIFIED Status: Acute Current Visit : Yes (2) Abscess of buttock, left SNOMED Code(s): 10829668 Code(s): L02.31 - CUTANEOUS ABSCESS OF BUTTOCK Status: Acute Current Visit: Yes (3) Acute kidney injury SNOMED Code(s): 54259537 Code(s): N17.9 - ACUTE KIDNEY FAILURE, UNSPECIFIED Status: Acute Current Visit: Yes (4) Alzheimer's dementia without behavioral disturbance SNOMED Code(s): 72068969 Code(s): G30.9 - ALZHEIMER'S DISEASE, UNSPECIFIED; F02.80 - DEMENTIA IN OTH DISEASES CLASSD ELSWHR W/O BEHAVRL DISTURB Status: Chronic Current Visit: Yes Qualifiers: Alzheimer's disease onset: late-onset Qualified Code(s): G30.1 - Alzheimer' s disease with late onset; F02.80 - Dementia in other diseases classified elsewhere without behavioral disturbance - Problem List Review Problem List Initiated/Reviewed/Updated: Yes - My Orders Last 24 Hours: My Active Orders 06/06/17 19:56 Resuscitation Status Routine 06/06/17 20:00 Sodium Chloride 0.9% [Normal Saline] 1,000 ml IV ASDIRECTED 06/06/17 21:00 Vancomycin 1 gm Sodium Chloride 0.9% [Normal Saline] 250 ml IV Q24H 06/06/17 21:01 Patient Status [ADT] Routine Bedrest Bedside Commode [RC] ASDIRECTED Intake and Output [RC] QSHIFT Notify Provider Vital Signs [RC] ASDIRECTED Oxygen Therapy [RC] PRN Up With Assistance [RC] ASDIRECTED VTE/DVT Education [RC] Per Unit Routine Vital Signs [RC] Q4H Donepezil [Aricept] 10 mg PO BEDTIME Memantine [Namenda] 10 mg PO BID Ondansetron [Zofran ODT] 4 mg PO Q6H PRN Ondansetron [Zofran] 4 mg IV Q6H PRN Polyethylene Glycol 3350 [MiraLAX] 17 gm PO DAILY PRN traMADol [Ultram] 50 mg PO TID 06/06/17 21:30 Lactobacillus Rhamnosus GG [Culturelle] 1 cap PO BID 06/06/17 22:00 Acetaminophen [Tylenol] 650 mg PO QID 06/07/17 08:33 Dimethicone/Zinc Oxide [Rash Relief-Zinc Oxide [place]] 0 gm TOP ASDIRECTED PRN 06/07/17 09:00 Aspirin 81 mg PO DAILY Citalopram [Celexa] 20 mg PO DAILY Docusate Sodium/Sennosides [Senna Plus] 2 tab PO DAILY Enoxaparin [Lovenox] 30 mg SUBCUT DAILY Metoprolol Succinate [Toprol XL] 25 mg PO DAILY Piperacillin/Tazobactam [Zosyn] 2.25 gm Sodium Chloride 0.9% [Normal Saline] 50 ml IV Q6H 06/07/17 10:00 Potassium Chloride 20 meq Lidocaine 1% [Xylocaine 1%] 2 ml Sodium Chloride 0.9 % [Normal Saline] 100 ml IV Q2H 06/07/17 10:13 Consult to Physician [CONS] Routine 06/07/17 10:14 Notify Provider Consults [RC] ASDIRECTED 06/08/17 05:00 BASIC METABOLIC PANEL,BMP [CHEM] Timed CBC W/O DIFF,HEMOGRAM [HEME] Timed (1) - Plan Plan:: ASSESSMENT AND PLAN - Left suppurative parotits - no obvious stone or abscess. Significant inflammation and swelling. White blood cell count is even higher this morning. Swelling seems a little more impressive but otherwise the patient feels better. Cultures are pending but negative so far. -Vancomycin and Pip/Tazo -Continue IV fluids -Follow-up blood cultures -Pain control -follow up final read from the CT scan -Lemon drops Left buttocks abscess with cellulitis - Surrounding induration and erythema. Surgical consultation pending. -Antibiotics as above -Surgical consultation Acute kidney injury - Creatinine has improved overnight with IV fluid hydration. -IV fluids -Repeat labs in the morning Coronary artery disease - history of. Patient does not report active symptoms. Blood pressure stable and she has a high risk for developing sepsis. -Hold calcium channel jasmin and OSEI inhibitor, reassess in the morning -Continue beta jasmin Late onset Alzheimer's dementia - No behavior issues at this time. -Melatonin at bedtime Maintenance issues - - DVT prophylaxis - enoxaparin - GI prophylaxis - not indicated - Nutrition - mechanical soft diet Disposition [facility] Jm Keating M.D.
[2017-06-07] MEDS: Potassium Chloride 20 MEQ, Lidocaine 1% 2 ML in Sodium Chloride 0.9% 100 ML IV SCH ×2 (10:21→13:26)
[2017-06-07] MEDS: Lactobacillus Rhamnosus GG (Probiotic) Cap PO SCH ×3 (11:36→21:02)
[2017-06-07] MEDS: Metoprolol Succinate 25 MG Tab.ER PO SCH (11:36)
[2017-06-07] MEDS: Memantine 10 MG Tab PO SCH ×3 (11:40→21:02)
[2017-06-07] MEDS: Aspirin 81 MG Tab.Chew PO SCH (11:40)
[2017-06-07] MEDS: Citalopram 20 MG Tab PO SCH (11:40)
[2017-06-07] MEDS: traMADol 50 MG Tab PO SCH ×3 (11:46→21:01)
[2017-06-07] MEDS: Melatonin 3 MG Tab PO SCH ×2 (20:30→21:01)
[2017-06-07] MEDS: Donepezil 10 MG Tab PO SCH ×2 (20:30→21:09)
[2017-06-08] MEDS: Piperacillin/Tazobactam 2.25 GM in Sodium Chloride 0.9% 50 ML IV SCH ×4 (02:45→22:00)
[2017-06-08] MEDS: Acetaminophen 325 MG Tab PO SCH ×4 (05:17→22:47)
[2017-06-08] MEDS: Sodium Chloride 0.9% 1,000 ML IV SCH (08:56)
[2017-06-08] MEDS: Aspirin 81 MG Tab.Chew PO SCH (08:58)
[2017-06-08] MEDS: Enoxaparin 30 MG/0.3 ML Syringe SUBCUT SCH (08:58)
[2017-06-08] MEDS: Citalopram 20 MG Tab PO SCH (08:58)
[2017-06-08] MEDS: Metoprolol Succinate 25 MG Tab.ER PO SCH (08:59)
[2017-06-08] MEDS: amLODIPine 10 MG Tab PO SCH (09:09)
[2017-06-08] MEDS: Memantine 10 MG Tab PO SCH ×2 (09:09→21:30)
[2017-06-08] MEDS: Lisinopril 2.5 MG Tab PO SCH (09:10)
[2017-06-08] MEDS: traMADol 50 MG Tab PO SCH ×3 (09:10→21:30)
--- NOTE | 2017-06-08 09:26 | PCM.PN ---
- General Info Date of Service: 06/08/17 Functional Status: Reports: Pain Controlled, Tolerating Diet - Review of Systems General: Denies: Fever Gastrointestinal: Reports: Abdominal Pain Systems Review Comment:: There were no acute events overnight. Patient did not have any fevers. She is more alert and interactive today. She does continue to endorse left cheek and neck pain. She's not sure if there any different than yesterday because she doesn't remember yesterday. She reports some mild lower abdominal pain. She does not feel short of breath. Cultures remain negative. - Patient Data Vitals - Most Recent: Last Vital Signs Temp 36.6 C 06/08/17 07:00 Pulse 82 06/08/17 08:59 Resp 18 06/08/17 07:00 BP 200/100 H 06/08/17 09:10 Pulse Ox 92 L 06/08/17 07:00 Weight - Most Recent: 56.291 kg I&O - Last 24 Hours: Intake & Output 06/07/17 06/08/17 06/08/17 22:59 06:59 14:59 Intake Total 1183 913 Balance 1183 913 Lab Results Last 24 Hours: Laboratory Results - last 24 hr 06/08/17 06/08/17 Range/Units 04:54 04:54 WBC 29.6 H (4.5-11.0) K/uL RBC 3.84 (3.30-5.50) M/uL Hgb 11.8 L (12.0-15.0) g/dL Hct 37.1 (36.0-48.0) % MCV 97 (80-98) fL MCH 31 (27-31) pg MCHC 32 (32-36) % Plt Count 257 (150-400) K/uL Sodium 147 (140-148) mmol/L Potassium 3.2 L (3.6-5.2) mmol/L Chloride 113 H (100-108) mmol/L Carbon Dioxide 22 (21-32) mmol/L Anion Gap 15.2 H (5.0-14.0) mmol/L BUN 19 H (7-18) mg/dL Creatinine 1.3 H (0.6-1.0) mg/dL Est Cr Clr Drug Dosing 26.58 mL/min Estimated GFR (MDRD) 39 L (>60) Glucose 136 H (74-106) mg/dL Calcium 8.9 (8.5-10.1) mg/dL [facility] Results Last 24 Hours: Microbiology 06/06/17 17:45 Aerobic Blood Culture - Preliminary Blood - Arm, Right NO GROWTH AFTER 1 DAY Anaerobic Blood Culture - Preliminary NO GROWTH AFTER 1 DAY 06/06/17 17:30 Aerobic Blood Culture - Preliminary Blood - Arm, Right NO GROWTH AFTER 1 DAY Anaerobic Blood Culture - Preliminary NO GROWTH AFTER 1 DAY Med Orders - Current: Current Medications Acetaminophen (Tylenol) 650 mg PO QID [facility] Last Admin: 06/08/17 09:09 Dose: 650 mg Amlodipine Besylate (Norvasc) 10 mg PO DAILY [facility] Last Admin: 06/08/17 09:09 Dose: 10 mg Aspirin (Aspirin) 81 mg PO DAILY [facility] Last Admin: 06/08/17 08:58 Dose: 81 mg Citalopram Hydrobromide (Celexa) 20 mg PO DAILY [facility] Last Admin: 06/08/17 08:58 Dose: 20 mg Dimethicone/Zinc Oxide (Rash Relief-Zinc Oxide [place]) 0 gm TOP ASDIRECTED PRN PRN Reason: Rash Last Admin: 06/07/17 11:41 Dose: 1 applic Donepezil HCl (Aricept) 10 mg PO BEDTIME [facility] Last Admin: 06/07/17 21:09 Dose: 10 mg Enoxaparin Sodium (Lovenox) 30 mg SUBCUT DAILY [facility] Last Admin: 06/08/17 08:58 Dose: 30 mg Vancomycin HCl 1 gm/ Sodium (Chloride) 250 mls @ 150 mls/hr IV Q24H [facility] Last Admin: 06/07/17 20:29 Dose: 150 mls/hr Piperacillin Sod/Tazobactam (Sod 2.25 gm/ Sodium Chloride) 50 mls @ 100 mls/hr IV Q6H [facility] Last Admin: 06/08/17 08:54 Dose: 100 mls/hr Potassium Chloride 20 meq/Lidocaine HCl 2 ml/ Sodium Chloride 112 mls @ 56 mls/ hr IV Q2H [facility] Stop: 06/08/17 13:29 Sodium Chloride (Normal Saline) 1,000 mls @ 25 mls/hr IV ASDIRECTED [facility] Lactobacillus Rhamnosus (Culturelle) 1 cap PO BID [facility] Last Admin: 06/07/17 21:02 Dose: 1 cap Lisinopril (Prinivil) 2.5 mg PO DAILY [facility] Last Admin: 06/08/17 09:10 Dose: 2.5 mg Melatonin (Melatonin) 6 mg PO BEDTIME [facility] Last Admin: 06/07/17 21:01 Dose: 6 mg Memantine (Namenda) 10 mg PO BID [facility] Last Admin: 06/08/17 09:09 Dose: 10 mg Metoprolol Succinate (Toprol Xl) 25 mg PO DAILY [facility] Last Admin: 06/08/17 08:59 Dose: 25 mg Ondansetron HCl (Zofran Odt) 4 mg PO Q6H PRN PRN Reason: Nausea able to take PO Ondansetron HCl (Zofran) 4 mg IV Q6H PRN PRN Reason: Nausea/Vomiting Polyethylene Glycol (Miralax) 17 gm PO DAILY PRN PRN Reason: Constipation Last Admin: 06/07/17 11:41 Dose: 17 gm Senna/Docusate Sodium (Senna Plus) 2 tab PO DAILY [facility] Last Admin: 06/08/17 09:10 Dose: Not Given Sodium Chloride (Saline Flush) 10 ml FLUSH ASDIRECTED PRN PRN Reason: Keep Vein Open Last Admin: 06/06/17 18:00 Dose: 10 ml Tramadol HCl (Ultram) 50 mg PO TID [facility] Last Admin: 06/08/17 09:10 Dose: 50 mg Discontinued Medications Lactated Ringer's (Ringers, Lactated) 1,000 mls @ 1,000 mls/hr IV BOLUS ONE Stop: 06/06/17 18:24 Last Admin: 06/06/17 17:59 Dose: 1,000 mls/hr Piperacillin Sod/Tazobactam (Sod 4.5 gm/ Sodium Chloride) 100 mls @ 200 mls/hr IV Q6H [facility] Last Admin: 06/06/17 19:03 Dose: 200 mls/hr Sodium Chloride (Normal Saline) 1,000 mls @ 100 mls/hr IV ASDIRECTED [facility] Last Admin: 06/08/17 08:56 Dose: 100 mls/hr Piperacillin Sod/Tazobactam (Sod 2.25 gm/ Sodium Chloride) 50 mls @ 100 mls/hr IV Q6H [facility] Last Admin: 06/07/17 01:30 Dose: 100 mls/hr Potassium Chloride 20 meq/Lidocaine HCl 2 ml/ Sodium Chloride 112 mls @ 56 mls/ hr IV Q2H [facility] Stop: 06/07/17 13:59 Last Admin: 06/07/17 13:26 Dose: 56 mls/hr - Exam Quality Assessment: No: Supplemental Oxygen General: Alert, Cooperative, No Acute Distress. No: Oriented HEENT: Other (swelling, warmth and tender parotid gland with swelling extending down onto neck. Still firm but less so today. No erythema ) Neck: Supple Lungs: Clear to Auscultation, Normal Respiratory Effort Cardiovascular: Regular Rate, Regular Rhythm GI/Abdominal Exam: Normal Bowel Sounds, Soft, Non-Tender, No Distention Extremities: No Pedal Edema Skin: Warm, Dry Wound/Incisions: Healing Well (left buttocks abscess with less induration and decreasing erythema) - Problem List & Annotations (1) Suppurative parotitis SNOMED Code(s): 05192502 Code(s): K11.20 - SIALOADENITIS, UNSPECIFIED Status: Acute Current Visit : Yes (2) Abscess of buttock, left SNOMED Code(s): 59393479 Code(s): L02.31 - CUTANEOUS ABSCESS OF BUTTOCK Status: Acute Current Visit: Yes (3) Acute kidney injury SNOMED Code(s): 79909402 Code(s): N17.9 - ACUTE KIDNEY FAILURE, UNSPECIFIED Status: Acute Current Visit: Yes (4) Alzheimer's dementia without behavioral disturbance SNOMED Code(s): 26653097 Code(s): G30.9 - ALZHEIMER'S DISEASE, UNSPECIFIED; F02.80 - DEMENTIA IN OTH DISEASES CLASSD ELSWHR W/O BEHAVRL DISTURB Status: Chronic Current Visit: Yes Qualifiers: Alzheimer's disease onset: late-onset Qualified Code(s): G30.1 - Alzheimer' s disease with late onset; F02.80 - Dementia in other diseases classified elsewhere without behavioral disturbance - Problem List Review Problem List Initiated/Reviewed/Updated: Yes - My Orders Last 24 Hours: My Active Orders 06/07/17 08:33 Dimethicone/Zinc Oxide [Rash Relief-Zinc Oxide [place]] 0 gm TOP ASDIRECTED PRN 06/07/17 09:00 Aspirin 81 mg PO DAILY Citalopram [Celexa] 20 mg PO DAILY Docusate Sodium/Sennosides [Senna Plus] 2 tab PO DAILY Enoxaparin [Lovenox] 30 mg SUBCUT DAILY Metoprolol Succinate [Toprol XL] 25 mg PO DAILY Piperacillin/Tazobactam [Zosyn] 2.25 gm Sodium Chloride 0.9% [Normal Saline] 50 ml IV Q6H 06/07/17 10:13 Consult to Physician [CONS] Routine 06/07/17 10:14 Notify Provider Consults [RC] ASDIRECTED 06/07/17 21:00 Melatonin 6 mg PO BEDTIME 06/08/17 09:00 Lisinopril [Prinivil] 2.5 mg PO DAILY amLODIPine [Norvasc] 10 mg PO DAILY 06/08/17 09:30 Potassium Chloride 20 meq Lidocaine 1% [Xylocaine 1%] 2 ml Sodium Chloride 0.9 % [Normal Saline] 100 ml IV Q2H Sodium Chloride 0.9% [Normal Saline] 1,000 ml IV ASDIRECTED 06/09/17 05:00 BASIC METABOLIC PANEL,BMP [CHEM] Timed CBC W/O DIFF,HEMOGRAM [HEME] Timed (1) - Plan Plan:: ASSESSMENT AND PLAN - Left suppurative parotitis - no obvious stone or abscess. swelling seems a little better today. White blood cell count trending down. No fevers overnight. Cultures remain negative. -Vancomycin and Pip/Tazo, plan to de-escalate tomorrow -saline lock IV fluids -Follow-up blood cultures -Pain control -Lemon drops Left buttocks abscess with cellulitis - Surrounding induration and erythema, no additional drainable fluid and clinically improving. -Antibiotics as above -local wound care Acute kidney injury - Creatinine has continued to improve each day. -IV fluids -Repeat labs in the morning Coronary artery disease - history of. Patient does not report active symptoms. Blood pressure stable and she has a high risk for developing sepsis. -Hold calcium channel jasmin and OSEI inhibitor, reassess in the morning -Continue beta jasmin Late onset Alzheimer's dementia - No behavior issues at this time. -Melatonin at bedtime Maintenance issues - - DVT prophylaxis - enoxaparin - GI prophylaxis - not indicated - Nutrition - mechanical soft diet Disposition - [facility] hospital stay Jm Keating M.D.
[2017-06-08] MEDS ORDERED: Sodium Chloride 0.9% 1,000 ML IV SCH (09:30)
[2017-06-08] MEDS: Lactobacillus Rhamnosus GG (Probiotic) Cap PO SCH ×2 (09:31→21:30)
[2017-06-08] MEDS: Potassium Chloride 20 MEQ, Lidocaine 1% 2 ML in Sodium Chloride 0.9% 100 ML IV SCH ×2 (09:41→11:47)
[2017-06-08] MEDS: Melatonin 3 MG Tab PO SCH (21:30)
[2017-06-08] MEDS: Donepezil 10 MG Tab PO SCH (21:30)
[2017-06-09] MEDS: Piperacillin/Tazobactam 2.25 GM in Sodium Chloride 0.9% 50 ML IV SCH ×2 (03:30→08:37)
[2017-06-09] MEDS: Acetaminophen 325 MG Tab PO SCH ×4 (07:37→21:44)
[2017-06-09] MEDS: Metoprolol Succinate 25 MG Tab.ER PO SCH (08:30)
[2017-06-09] MEDS: Lisinopril 2.5 MG Tab PO SCH (08:30)
[2017-06-09] MEDS: traMADol 50 MG Tab PO SCH ×3 (09:00→21:44)
[2017-06-09] MEDS: Potassium Chloride 20 MEQ, Lidocaine 1% 2 ML in Sodium Chloride 0.9% 100 ML IV SCH ×2 (10:23→12:34)
--- NOTE | 2017-06-09 10:37 | PN ---
DATE OF SERVICE: 06/09/2017 SUBJECTIVE: Atiya has an abscess in her left buttock and it seems to be increasing in size and there is an area of firmness noted around the open area. Temp max of 99.2. Vital signs have been stable. REVIEW OF SYSTEMS: Remainder of review of systems is negative for any pertinent positives and negatives. OBJECTIVE: GENERAL: Atiya Romero is an 87-year-old female with dementia. VITAL SIGNS: TPR is 99.2, 90, 16; blood pressure is 166/70. HEENT: Negative. HEART: Regular rate. LUNGS: Clear. ABDOMEN: Soft. BACK: There is an open area in left sacral that is draining a pink serosanguineous drainage. The skin is darker and firm around the area. EXTREMITIES: Without peripheral edema. ASSESSMENT: Abscess of left sacral area, suppurative parotitis, and Alzheimer's dementia with behavior disturbance. PLAN: 1. Schedule and have consent signed per guardian for incision and drainage of abscess on sacrum, local IV sedation, 06/09/2017. Case to follow Renny Carrillo MD. N.p.o. 2. OR Room Service Food Service Attendant notified, orders to be written postoperatively. Linda Diop PA-C /[id number]
--- NOTE | 2017-06-09 11:59 | PCM.PN ---
- General Info Date of Service: 06/09/17 Functional Status: Reports: Pain Controlled, Tolerating Diet - Review of Systems General: Denies: Fever HEENT: Reports: Other (left neck/ear pain) Gastrointestinal: Denies: Abdominal Pain Systems Review Comment:: There were no acute events overnight. She tolerated transfer out of the intensive care unit with no difficulties. She is more alert and interactive and feisty today. No complaints of abdominal pain. She does continue to complain about pain in her left cheek and neck area. White blood cell count trending down. Not having any fevers. - Patient Data Vitals - Most Recent: Last Vital Signs Temp 37.3 C 06/09/17 08:28 Pulse 90 06/09/17 08:30 Resp 16 06/09/17 08:28 BP 144/60 H 06/09/17 08:30 Pulse Ox 95 06/09/17 08:28 Weight - Most Recent: 56.291 kg I&O - Last 24 Hours: Intake & Output 06/08/17 06/09/17 06/09/17 22:59 06:59 14:59 Intake Total 1118 162 Balance 1118 162 Lab Results Last 24 Hours: Laboratory Results - last 24 hr 06/09/17 06/09/17 Range/Units 05:07 05:07 WBC 24.4 H (4.5-11.0) K/uL RBC 3.74 (3.30-5.50) M/uL Hgb 11.7 L (12.0-15.0) g/dL Hct 35.5 L (36.0-48.0) % MCV 95 (80-98) fL MCH 31 (27-31) pg MCHC 33 (32-36) % Plt Count 281 (150-400) K/uL Sodium 146 (140-148) mmol/L Potassium 3.4 L (3.6-5.2) mmol/L Chloride 112 H (100-108) mmol/L Carbon Dioxide 24 (21-32) mmol/L Anion Gap 13.4 (5.0-14.0) mmol/L BUN 17 (7-18) mg/dL Creatinine 1.2 H (0.6-1.0) mg/dL Est Cr Clr Drug Dosing 28.80 mL/min Estimated GFR (MDRD) 42 L (>60) Glucose 92 (74-106) mg/dL Calcium 8.9 (8.5-10.1) mg/dL Leonardo Results Last 24 Hours: Microbiology 06/06/17 17:45 Aerobic Blood Culture - Preliminary Blood - Arm, Right NO GROWTH AFTER 2 DAYS Anaerobic Blood Culture - Preliminary NO GROWTH AFTER 2 DAYS 06/06/17 17:30 Aerobic Blood Culture - Preliminary Blood - Arm, Right NO GROWTH AFTER 2 DAYS Anaerobic Blood Culture - Preliminary NO GROWTH AFTER 2 DAYS Med Orders - Current: Current Medications Acetaminophen (Tylenol) 650 mg PO QID [facility] Last Admin: 06/09/17 10:33 Dose: Not Given Amlodipine Besylate (Norvasc) 10 mg PO DAILY [facility] Last Admin: 06/08/17 09:09 Dose: 10 mg Aspirin (Aspirin) 81 mg PO DAILY [facility] Last Admin: 06/08/17 08:58 Dose: 81 mg Citalopram Hydrobromide (Celexa) 20 mg PO DAILY [facility] Last Admin: 06/08/17 08:58 Dose: 20 mg Dimethicone/Zinc Oxide (Rash Relief-Zinc Oxide [place]) 0 gm TOP ASDIRECTED PRN PRN Reason: Rash Last Admin: 06/07/17 11:41 Dose: 1 applic Donepezil HCl (Aricept) 10 mg PO BEDTIME [facility] Last Admin: 06/08/17 21:30 Dose: 10 mg Enoxaparin Sodium (Lovenox) 30 mg SUBCUT DAILY [facility] Last Admin: 06/08/17 08:58 Dose: 30 mg Potassium Chloride 20 meq/Lidocaine HCl 2 ml/ Sodium Chloride 112 mls @ 56 mls/ hr IV Q2H [facility] Stop: 06/09/17 13:29 Last Admin: 06/09/17 10:23 Dose: 56 mls/hr Lactobacillus Rhamnosus (Culturelle) 1 cap PO BID [facility] Last Admin: 06/08/17 21:30 Dose: 1 cap Lisinopril (Prinivil) 2.5 mg PO DAILY [facility] Last Admin: 06/09/17 08:30 Dose: 2.5 mg Melatonin (Melatonin) 6 mg PO BEDTIME [facility] Last Admin: 06/08/17 21:30 Dose: 6 mg Memantine (Namenda) 10 mg PO BID [facility] Last Admin: 06/08/17 21:30 Dose: 10 mg Metoprolol Succinate (Toprol Xl) 25 mg PO DAILY [facility] Last Admin: 06/09/17 08:30 Dose: 25 mg Ondansetron HCl (Zofran Odt) 4 mg PO Q6H PRN PRN Reason: Nausea able to take PO Ondansetron HCl (Zofran) 4 mg IV Q6H PRN PRN Reason: Nausea/Vomiting Polyethylene Glycol (Miralax) 17 gm PO DAILY PRN PRN Reason: Constipation Last Admin: 06/07/17 11:41 Dose: 17 gm Senna/Docusate Sodium (Senna Plus) 2 tab PO DAILY [facility] Last Admin: 06/08/17 09:10 Dose: Not Given Sodium Chloride (Saline Flush) 10 ml FLUSH ASDIRECTED PRN PRN Reason: Keep Vein Open Last Admin: 06/06/17 18:00 Dose: 10 ml Tramadol HCl (Ultram) 50 mg PO TID [facility] Last Admin: 06/09/17 09:00 Dose: Not Given Discontinued Medications Lactated Ringer's (Ringers, Lactated) 1,000 mls @ 1,000 mls/hr IV BOLUS ONE Stop: 06/06/17 18:24 Last Admin: 06/06/17 17:59 Dose: 1,000 mls/hr Piperacillin Sod/Tazobactam (Sod 4.5 gm/ Sodium Chloride) 100 mls @ 200 mls/hr IV Q6H [facility] Last Admin: 06/06/17 19:03 Dose: 200 mls/hr Sodium Chloride (Normal Saline) 1,000 mls @ 100 mls/hr IV ASDIRECTED [facility] Last Admin: 06/08/17 08:56 Dose: 100 mls/hr Piperacillin Sod/Tazobactam (Sod 2.25 gm/ Sodium Chloride) 50 mls @ 100 mls/hr IV Q6H [facility] Last Admin: 06/07/17 01:30 Dose: 100 mls/hr Vancomycin HCl 1 gm/ Sodium (Chloride) 250 mls @ 150 mls/hr IV Q24H [facility] Last Admin: 06/08/17 22:49 Dose: 150 mls/hr Piperacillin Sod/Tazobactam (Sod 2.25 gm/ Sodium Chloride) 50 mls @ 100 mls/hr IV Q6H [facility] Last Admin: 06/09/17 08:37 Dose: 100 mls/hr Potassium Chloride 20 meq/Lidocaine HCl 2 ml/ Sodium Chloride 112 mls @ 56 mls/ hr IV Q2H [facility] Stop: 06/07/17 13:59 Last Admin: 06/07/17 13:26 Dose: 56 mls/hr Potassium Chloride 20 meq/Lidocaine HCl 2 ml/ Sodium Chloride 112 mls @ 56 mls/ hr IV Q2H [facility] Stop: 06/08/17 13:29 Last Admin: 06/08/17 11:47 Dose: 56 mls/hr Sodium Chloride (Normal Saline) 1,000 mls @ 25 mls/hr IV ASDIRECTED [facility] - Exam Quality Assessment: No: Supplemental Oxygen General: Alert, Cooperative, No Acute Distress. No: Oriented HEENT: Other (swelling warmth and tenderness of left parotid area) Neck: Supple Lungs: Clear to Auscultation, Normal Respiratory Effort Cardiovascular: Regular Rate, Regular Rhythm GI/Abdominal Exam: Normal Bowel Sounds, Soft, No Distention Extremities: No Pedal Edema Skin: Warm, Dry Psy/Mental Status: Alert, Anxious - Problem List & Annotations (1) Suppurative parotitis SNOMED Code(s): 49011029 Code(s): K11.20 - SIALOADENITIS, UNSPECIFIED Status: Acute Current Visit : Yes (2) Abscess of buttock, left SNOMED Code(s): 04954015 Code(s): L02.31 - CUTANEOUS ABSCESS OF BUTTOCK Status: Acute Current Visit: Yes (3) Acute kidney injury SNOMED Code(s): 19395711 Code(s): N17.9 - ACUTE KIDNEY FAILURE, UNSPECIFIED Status: Acute Current Visit: Yes (4) Alzheimer's dementia without behavioral disturbance SNOMED Code(s): 73252295 Code(s): G30.9 - ALZHEIMER'S DISEASE, UNSPECIFIED; F02.80 - DEMENTIA IN OTH DISEASES CLASSD ELSWHR W/O BEHAVRL DISTURB Status: Chronic Current Visit: Yes Qualifiers: Alzheimer's disease onset: late-onset Qualified Code(s): G30.1 - Alzheimer' s disease with late onset; F02.80 - Dementia in other diseases classified elsewhere without behavioral disturbance - Problem List Review Problem List Initiated/Reviewed/Updated: Yes - My Orders Last 24 Hours: My Active Orders 06/09/17 09:30 Potassium Chloride 20 meq Lidocaine 1% [Xylocaine 1%] 2 ml Sodium Chloride 0.9 % [Normal Saline] 100 ml IV Q2H 06/09/17 12:00 Ciprofloxacin [Ciprofloxacin HCl] 500 mg PO Q24H 06/09/17 14:00 Clindamycin HCl [Cleocin] 450 mg PO TID 06/10/17 05:00 BASIC METABOLIC PANEL,BMP [CHEM] Timed CBC W/O DIFF,HEMOGRAM [HEME] Timed (1) - Plan Plan:: ASSESSMENT AND PLAN - Left suppurative parotitis - no obvious stone or abscess. swelling stable to slightly improved. White blood cell count trending down. No fevers overnight. Cultures are negative. -Change antibiotics to ciprofloxacin and clindamycin -saline lock IV fluids -Follow-up blood cultures -Pain control -Hot pack to left cheek as needed -Lemon drops Left buttocks abscess with cellulitis - Surrounding induration and erythema has improved significantly since admission. Surgical intervention is planned for additional drainage today. Encourage oral intake -Antibiotics as above -local wound care Acute kidney injury - Creatinine has continued to improve each day. - -Repeat labs in the morning Coronary artery disease - history of. Patient does not report active symptoms. Blood pressure has improved and home medications were started. -Home medications restarted yesterday -Continue beta jasmin Late onset Alzheimer's dementia - No behavior issues at this time. -Melatonin at bedtime Maintenance issues - - DVT prophylaxis - enoxaparin - GI prophylaxis - not indicated - Nutrition - mechanical soft diet Disposition - anticipate discharge back to the [facility] after the hospital stay, possibly tomorrow if stable overnight Jm Keating M.D.
[2017-06-09] MEDS: Lactobacillus Rhamnosus GG (Probiotic) Cap PO SCH ×2 (12:21→21:44)
[2017-06-09] MEDS: Memantine 10 MG Tab PO SCH ×2 (12:21→21:43)
[2017-06-09] MEDS ORDERED: Ciprofloxacin 500 MG Tab PO SCH (14:00)
[2017-06-09] MEDS ORDERED: Bupivacaine 0.5% 50 ML MDV ONE (14:22)
[2017-06-09] MEDS ORDERED: Lidocaine 1% with EPINEPHrine 1:100,000 50 ML MDV ONE (14:22)
[2017-06-09] MEDS ORDERED: Propofol 200 MG/20 ML SDV ONE (14:39)
[2017-06-09] MEDS: Clindamycin HCl 150 MG Cap PO SCH ×2 (14:59→21:44)
[2017-06-09] MEDS ORDERED: Lactated Ringers 1,000 ML ONE (18:56)
[2017-06-09] MEDS: Donepezil 10 MG Tab PO SCH (21:43)
[2017-06-09] MEDS: Aspirin 81 MG Tab.Chew PO SCH (21:43)
[2017-06-09] MEDS: amLODIPine 10 MG Tab PO SCH (21:43)
[2017-06-09] MEDS: Citalopram 20 MG Tab PO SCH (21:43)
[2017-06-09] MEDS: Enoxaparin 30 MG/0.3 ML Syringe SUBCUT SCH (21:44)
[2017-06-09] MEDS: Melatonin 3 MG Tab PO SCH (21:46)
[2017-06-10] MEDS: Acetaminophen 325 MG Tab PO SCH ×2 (06:48→10:04)
[2017-06-10] MEDS: Clindamycin HCl 150 MG Cap PO SCH (08:24)
[2017-06-10] MEDS: Aspirin 81 MG Tab.Chew PO SCH (08:24)
[2017-06-10] MEDS: Citalopram 20 MG Tab PO SCH (08:24)
[2017-06-10] MEDS: Memantine 10 MG Tab PO SCH (08:25)
[2017-06-10] MEDS: Enoxaparin 30 MG/0.3 ML Syringe SUBCUT SCH (08:25)
[2017-06-10] MEDS: Lactobacillus Rhamnosus GG (Probiotic) Cap PO SCH (08:25)
[2017-06-10] MEDS: amLODIPine 10 MG Tab PO SCH (08:26)
[2017-06-10] MEDS: Lisinopril 2.5 MG Tab PO SCH (08:27)
[2017-06-10] MEDS: traMADol 50 MG Tab PO SCH (08:27)
[2017-06-10] MEDS: Metoprolol Succinate 25 MG Tab.ER PO SCH (08:27)
--- NOTE | 2017-06-10 09:23 | PN ---
DATE OF SERVICE: 06/10/2017 SUBJECTIVE: Atiya is postoperative day 1 following a debridement of necrotizing fasciitis, left sacral and perianal area 06/09/2017. Atiya has dementia. Vital signs have been stable and pain appeared to be managed. OBJECTIVE: GENERAL: Atiya is an 87-year-old female. VITAL SIGNS: TPR 98, 65, 16. Blood pressure 177/67. HEENT: Negative. NECK: Supple. HEART: Regular rate and rhythm. : Low back and perineal area dressing dry and intact. EXTREMITIES: Without peripheral edema. ASSESSMENT: Incision and drainage of necrotizing fasciitis, left sacral and perianal area on 06/09/2017. PLAN: Continue dressing changes t.i.d. and p.r.n. We will evaluate p.r.n. or in a.m. Linda Diop PA-C /[id number]
--- NOTE | 2017-06-10 10:57 | PCM.DCSUM1 ---
Discharge Summary - Hospital Course Brief History: 87-year-old female with history of Alzheimer's dementia who presented from the snf with fever. Workup in the emergency room suggested left parotitis as well as a left buttocks abscess and acute kidney injury. She was admitted for further management. - Discharge Data Discharge Date: 06/10/17 Discharge Disposition: DC/Tfer to [facility] 03 Condition: Fair - Discharge Diagnosis/Problem(s) (1) Suppurative parotitis SNOMED Code(s): 76207321 ICD Code: K11.20 - SIALOADENITIS, UNSPECIFIED Status: Acute Current Visit : Yes Problem Details: Left suppurative parotitis (2) Abscess of buttock, left SNOMED Code(s): 53196614 ICD Code: L02.31 - CUTANEOUS ABSCESS OF BUTTOCK Status: Acute Current Visit: Yes (3) Acute kidney injury SNOMED Code(s): 21316708 ICD Code: N17.9 - ACUTE KIDNEY FAILURE, UNSPECIFIED Status: Acute Current Visit: Yes (4) Alzheimer's dementia without behavioral disturbance SNOMED Code(s): 98620358 ICD Code: G30.9 - ALZHEIMER'S DISEASE, UNSPECIFIED; F02.80 - DEMENTIA IN OTH DISEASES CLASSD ELSWHR W/O BEHAVRL DISTURB Status: Chronic Current Visit: Yes Qualifiers: Alzheimer's disease onset: late-onset Qualified Code(s): G30.1 - Alzheimer' s disease with late onset; F02.80 - Dementia in other diseases classified elsewhere without behavioral disturbance - Patient Summary/Data Consults: Consultations 06/07/17 10:13 Consult to Physician [CONS] Routine Consulting Provider: Renny Carrillo Courtesy Call Completed to Consulting Physician: Yes Reason for Consult: Left buttocks abscess Person Notified: RIVAS Date Notified: 06/07/17 Special Instructions: will see after surgery Hospital Course: Atiya presented from the snf to the emergency room with fever. Workup in the emergency room revealed evidence for severe left-sided parotitis as diagnosed based on CT scan. She also had a left buttocks abscess. Acute kidney injury was noted on laboratory testing and she had significant leukocytosis. She was started on broad-spectrum antibiotics and given IV fluids and admitted for additional management. overnight following admission she had fevers and clinically not much in the way of change other than some improvement in her heart rate. The swelling and pain in her cheek had not improved much. Her white count was actually higher the morning after admission kidney function was slightly better. She was evaluated by Dr. Carrillo regarding the left buttocks abscess and at that time he did not think there was any need for surgical intervention. Over the next 24 hours she had clinical improvement with improvements in her mental status. Vital signs were stable and fever curve improving. White blood cell count started to trend down. Swelling and pain in the left cheek were essentially unchanged. the left buttocks abscess had improving erythema and less drainage. From hospital day 2 to hospital day 3 there was ongoing improvement. Mental status continued to improve and she was nearly back to baseline. Kidney function had a steady trend towards improvement. Fever curve continued to improve with near resolution of her fevers. White blood cell count continued to improve. Appetite and energy were improving. On the third day after admission there was some concern for worsening of the infection in the left buttocks and she was taken to the operating room late in the day for surgical debridement of the buttocks abscess. debridement was uncomplicated. Patient had further improvement in the swelling and pain in her left cheek. White blood cell count continued to trend down and clinically she was doing well. she was transitioned to oral antibiotics the day before discharge.On the morning of discharge she has had further improvement in her cheek pain and swelling as well as her white blood cell count. The debrided area on her left buttocks appears to be healing very nicely. I believe she is safe for discharge back to the snf at this point. The parotid gland appears to be improving significantly with antibiotic therapy. The surgically debrided abscess appears to be doing very well with no surrounding erythema or induration. She will be on antibiotics for another week with combination therapy including ciprofloxacin and clindamycin. - Patient Instructions Diet: Regular Diet as Tolerated Activity: As Tolerated Showering/Bathing: May Shower Notify Provider of: Fever, Increased Pain, Nausea and/or Vomiting Other/Special Instructions: 1. You were in the hospital for management of left suppurative parotitis. We did not determine a causative bacteria from your cultures. You have been improving with antibiotic therapy and I do recommend 7 additional days of antibiotic therapy. You will be on ciprofloxacin 500 mg taken every 24 hours. Your next dose is due at 2 PM today. You will also be on clindamycin 300 mg taken 4 times daily with your next dose due this afternoon. 2. You had an abscess on her left buttocks. This has been surgically debrided. You will need dressing changes twice daily and as needed if soiled. Dressing change instructions are outlined in the wound care section. the antibiotics used to treat infection above will cover abscess pathogens well. 3. CODE STATUS DO NOT RESUSCITATE and DO NOT INTUBATE. 4. Resume previous snf orders including scheduled laboratory treatments. 5. Please seek medical attention if you develop fever greater than 101, you have severe pain in your cheek/neck, you have persistent vomiting or severe diarrhea. - Discharge Plan Prescriptions/Med Rec: Ciprofloxacin [IJD: Ciprofloxacin HCl] 500 mg PO Q24H #7 tablet Clindamycin HCl [Cleocin] 300 mg PO QID #28 cap Home Medications: Home Meds Donepezil [Aricept] 10 mg PO BEDTIME 01/02/13 [History] Memantine [Namenda] 10 mg PO BID 01/02/13 [History] Metoprolol Succinate [Toprol XL] 25 mg PO DAILY 01/02/13 [History] amLODIPine [Norvasc] 10 mg PO DAILY 01/02/13 [History] traMADol [Ultram] 50 mg PO TID 01/02/13 [History] Lactobacillus Combination No.4 [Probiotic] 1 cap PO BID 01/02/14 [History] Lisinopril [Zestril] 2.5 mg PO DAILY 01/02/14 [History] Acetaminophen [Tylenol] 650 mg PO TID 09/18/16 [History] Aspirin 81 mg PO DAILY 09/18/16 [History] Bisacodyl [Dulcolax] 1 supp RECTAL ASDIRECTED PRN 09/18/16 [History] Citalopram Hydrobromide [Celexa] 20 mg PO DAILY 09/18/16 [History] Calcium Carb/Vit D3/Minerals [Cvs Calcium Chewables Plus Tab] 1 tab IA 06/06/17 [History] Sennosides/Docusate Sodium [Senna-Docusate Sodium] 2 tab PO DAILY 06/06/17 [ History] Ciprofloxacin [IJD: Ciprofloxacin HCl] 500 mg PO Q24H #7 tablet 06/10/17 [Rx] Clindamycin HCl [Cleocin] 300 mg PO QID #28 cap 06/10/17 [Rx] Patient Handouts: Parotitis, Ciprofloxacin tablets, Clindamycin capsules Referrals: Freddie Padilla MD [Primary Care Provider] - (as needed) - Patient Data Vitals - Most Recent: Last Vital Signs Temp 36.7 C 06/10/17 07:00 Pulse 65 06/10/17 08:27 Resp 16 06/10/17 07:00 BP 177/67 H 06/10/17 08:27 Pulse Ox 94 L 06/10/17 07:00 Weight - Most Recent: 56.291 kg I&O - Last 24 hours: Intake & Output 06/09/17 06/10/17 06/10/17 22:59 06:59 14:59 Intake Total 500 Balance 500 MADDIE Results - Last 24 hrs: Microbiology 06/09/17 19:15 Gram Stain - Final Sacrum 06/06/17 17:45 Aerobic Blood Culture - Preliminary Blood - Arm, Right NO GROWTH AFTER 3 DAYS Anaerobic Blood Culture - Preliminary NO GROWTH AFTER 3 DAYS 06/06/17 17:30 Aerobic Blood Culture - Preliminary Blood - Arm, Right NO GROWTH AFTER 3 DAYS Anaerobic Blood Culture - Preliminary NO GROWTH AFTER 3 DAYS Med Orders - Current: Current Medications Acetaminophen (Tylenol) 650 mg PO QID [facility] Last Admin: 06/10/17 10:04 Dose: 650 mg Amlodipine Besylate (Norvasc) 10 mg PO DAILY [facility] Last Admin: 06/10/17 08:26 Dose: 10 mg Aspirin (Aspirin) 81 mg PO DAILY [facility] Last Admin: 06/10/17 08:24 Dose: 81 mg Ciprofloxacin (Ciprofloxacin Hcl) 500 mg PO Q24H [facility] Last Admin: 06/09/17 21:45 Dose: Not Given Citalopram Hydrobromide (Celexa) 20 mg PO DAILY [facility] Last Admin: 06/10/17 08:24 Dose: 20 mg Clindamycin HCl (Cleocin) 450 mg PO TID [facility] Last Admin: 06/10/17 08:24 Dose: 450 mg Dimethicone/Zinc Oxide (Rash Relief-Zinc Oxide [place]) 0 gm TOP ASDIRECTED PRN PRN Reason: Rash Last Admin: 06/07/17 11:41 Dose: 1 applic Donepezil HCl (Aricept) 10 mg PO BEDTIME [facility] Last Admin: 06/09/17 21:43 Dose: 10 mg Enoxaparin Sodium (Lovenox) 30 mg SUBCUT DAILY [facility] Last Admin: 06/10/17 08:25 Dose: 30 mg Lactobacillus Rhamnosus (Culturelle) 1 cap PO BID [facility] Last Admin: 06/10/17 08:25 Dose: 1 cap Lisinopril (Prinivil) 2.5 mg PO DAILY [facility] Last Admin: 06/10/17 08:27 Dose: 2.5 mg Melatonin (Melatonin) 6 mg PO BEDTIME [facility] Last Admin: 06/09/17 21:46 Dose: 6 mg Memantine (Namenda) 10 mg PO BID [facility] Last Admin: 06/10/17 08:25 Dose: 10 mg Metoprolol Succinate (Toprol Xl) 25 mg PO DAILY [facility] Last Admin: 06/10/17 08:27 Dose: 25 mg Ondansetron HCl (Zofran Odt) 4 mg PO Q6H PRN PRN Reason: Nausea able to take PO Ondansetron HCl (Zofran) 4 mg IV Q6H PRN PRN Reason: Nausea/Vomiting Polyethylene Glycol (Miralax) 17 gm PO DAILY PRN PRN Reason: Constipation Last Admin: 06/07/17 11:41 Dose: 17 gm Senna/Docusate Sodium (Senna Plus) 2 tab PO DAILY [facility] Last Admin: 06/10/17 08:27 Dose: 2 tab Sodium Chloride (Saline Flush) 10 ml FLUSH ASDIRECTED PRN PRN Reason: Keep Vein Open Last Admin: 06/06/17 18:00 Dose: 10 ml Tramadol HCl (Ultram) 50 mg PO TID [facility] Last Admin: 06/10/17 08:27 Dose: 50 mg Discontinued Medications Bupivacaine HCl (Marcaine 0.5%) Confirm Administered Dose 50 ml .ROUTE .STK-MED ONE Stop: 06/09/17 14:23 Last Admin: 06/09/17 19:11 Dose: 1 ml Lactated Ringer's (Ringers, Lactated) 1,000 mls @ 1,000 mls/hr IV BOLUS ONE Stop: 06/06/17 18:24 Last Admin: 06/06/17 17:59 Dose: 1,000 mls/hr Piperacillin Sod/Tazobactam (Sod 4.5 gm/ Sodium Chloride) 100 mls @ 200 mls/hr IV Q6H [facility] Last Admin: 06/06/17 19:03 Dose: 200 mls/hr Sodium Chloride (Normal Saline) 1,000 mls @ 100 mls/hr IV ASDIRECTED [facility] Last Admin: 06/08/17 08:56 Dose: 100 mls/hr Piperacillin Sod/Tazobactam (Sod 2.25 gm/ Sodium Chloride) 50 mls @ 100 mls/hr IV Q6H [facility] Last Admin: 06/07/17 01:30 Dose: 100 mls/hr Vancomycin HCl 1 gm/ Sodium (Chloride) 250 mls @ 150 mls/hr IV Q24H [facility] Last Admin: 06/08/17 22:49 Dose: 150 mls/hr Piperacillin Sod/Tazobactam (Sod 2.25 gm/ Sodium Chloride) 50 mls @ 100 mls/hr IV Q6H [facility] Last Admin: 06/09/17 08:37 Dose: 100 mls/hr Potassium Chloride 20 meq/Lidocaine HCl 2 ml/ Sodium Chloride 112 mls @ 56 mls/ hr IV Q2H [facility] Stop: 06/07/17 13:59 Last Admin: 06/07/17 13:26 Dose: 56 mls/hr Potassium Chloride 20 meq/Lidocaine HCl 2 ml/ Sodium Chloride 112 mls @ 56 mls/ hr IV Q2H [facility] Stop: 06/08/17 13:29 Last Admin: 06/08/17 11:47 Dose: 56 mls/hr Sodium Chloride (Normal Saline) 1,000 mls @ 25 mls/hr IV ASDIRECTED [facility] Potassium Chloride 20 meq/Lidocaine HCl 2 ml/ Sodium Chloride 112 mls @ 56 mls/ hr IV Q2H [facility] Stop: 06/09/17 13:29 Last Admin: 06/09/17 12:34 Dose: 56 mls/hr Lactated Ringer's (Ringers, Lactated) Confirm Administered Dose 1,000 mls @ as directed .ROUTE .STK-MED ONE Stop: 06/09/17 18:57 Lidocaine/Epinephrine (Xylocaine 1% With Epinephrine 1:100,000) Confirm Administered Dose 50 ml .ROUTE .STK-MED ONE Stop: 06/09/17 14:23 Last Admin: 06/09/17 19:11 Dose: 1 ml Propofol (Diprivan 20 Ml) Confirm Administered Dose 200 mg .ROUTE .STK-MED ONE Stop: 06/09/17 14:40 - Exam Quality Assessment: Denies: Supplemental Oxygen General: Reports: Alert, Cooperative, No Acute Distress. Denies: Oriented Neck: Reports: Supple Lungs: Reports: Normal Respiratory Effort GI/Abdominal Exam: Soft, No Distention Extremities: No Pedal Edema Wound/Incisions: Reports: Healing Well (left buttocks), No Drainage, Erythema Improving Psy/Mental Status: Reports: Alert, Normal Affect ( just got)
[2017-06-10 11:10] VITALS: BP 164/58
--- NOTE | 2017-06-12 14:11 | CONS ---
DATE OF SERVICE: 06/07/2017 REFERRING PHYSICIAN: CONSULTING PHYSICIAN: Renny Carrillo MD This is an 87-year-old with advanced dementia, presenting with an area of redness and drainage in the sacral area. This appeared to be likely related to some pressure. There had been some purulent fluid present that is now drained and it appeared to be well drained with minimal surrounding cellulitis. At this point, I think we will manage this with some topical rash relief to minimize inflammation and frequent dressing changes and avoidance of pressure over that area, and it should likely heal up. At this point, we will see her daily until discharged. Renny Carrillo MD /[id number]
--- NOTE | 2017-06-12 17:15 | PN ---
DATE OF SERVICE: 06/08/2017 The patient is clinically stable. The pressure over the sacral region has improved somewhat in terms of redness, and there is no significant drainage. We will continue the local wound care and avoidance of pressure on that area. Renny Carrillo MD /[id number]
--- NOTE | 2017-06-21 09:56 | OR ---
DATE OF PROCEDURE: 06/09/2017 PREOPERATIVE DIAGNOSIS: Incompletely drained abscess of left sacral and perineal areas. POSTOPERATIVE DIAGNOSIS: Focal necrotizing fasciitis, left perineal and sacral areas. OPERATIVE PROCEDURE: Debridement of necrotizing fasciitis, left perineal and sacral areas ([id number]). ANESTHESIA: IV sedation. INDICATION FOR PROCEDURE: This is an 87-year-old presenting with an open area in the sacral region extending onto the perineum. This appears to have increased somewhat in the last 24 hours in terms of edema and fluctuance, and the plan is to proceed with a local exploration and debridement as indicated. Potential risks including bleeding and infection were reviewed with the patient's guardian, and they wished to proceed. DETAILS OF PROCEDURE: The patient was taken to the operating room and placed in a right lateral decubitus position. The area of the left perineum and adjacent sacral areas were then prepped and draped. A probe could then be passed through the opening in the lower sacral area. This extended into the left perineal region. It appeared this probably originated from the perineal region as a necrotizing infection. Upon incision of this area, there was a quite bit in the way of necrosis of the skin and subcutaneous tissue. This was extended down to include some of the muscular fascia and musculature, in terms of the necrosis. This was all debrided away until there was a clean layer of tissue in all areas. Cultures were obtained, and at that point, hemostasis was confirmed with electrocautery and the dressing applied. The patient was taken to the recovery room in satisfactory condition. Renny Carrillo MD /[id number]
== END 2017-06-10 11:55 | DRG 981 ==
LOC: JP.ED 17:16 → JP.ICU 19:54 → JP.MS 06-08 13:30
PROVIDERS: ADMIT Internal Medicine; ATTEND Internal Medicine
PROC: 0KBP0ZZ Excision of Left Hip Muscle, Open Approach (ICD-10-PCS; principal; 2017-06-09)
DX: K11.20 Sialoadenitis, unspecified (principal); M72.6 Necrotizing fasciitis; L03.317 Cellulitis of buttock; L02.31 Cutaneous abscess of buttock; N17.9 Acute kidney failure, unspecified; E86.0 Dehydration; Z66 Do not resuscitate; B95.62 Methicillin resistant Staphylococcus aureus infection as the cause of diseases classified elsewhere; G30.1 Alzheimer's disease with late onset; F02.80 Dementia in other diseases classified elsewhere, unspecified severity, without behavioral disturbance, psychotic disturbance, mood disturbance, and anxiety; R50.9 Fever, unspecified; M54.2 Cervicalgia; Z87.891 Personal history of nicotine dependence; I10 Essential (primary) hypertension; I25.10 Atherosclerotic heart disease of native coronary artery without angina pectoris; K59.09 Other constipation; Z95.5 Presence of coronary angioplasty implant and graft; Z96.652 Presence of left artificial knee joint; Z79.82 Long term (current) use of aspirin; Z88.6 Allergy status to analgesic agent; Z88.8 Allergy status to other drugs, medicaments and biological substances
CPT/HCPCS: 36415; 70490; 71045 ×2; 80048; 83605; 85027; 87040 ×2; 96360; 99284; 99285; J2543; J7030; J7050; J7120; 81001; 86140; 87070; 87075; 87077; 87186; 87205; 88304; 96372; A9270-GY; J1650; J2704; J3370; J3480; J7040

== ENCOUNTER 2017-06-22 10:05 | Emergency (ER) | payer MEDICARE, BC, MEDICAID ==
[2017-06-22 10:16] VITALS: BP 144/54
--- NOTE | 2017-06-22 10:53 | EDM.PDOCBH ---
ED HPI GENERAL MEDICAL PROBLEM - General Chief Complaint: Behavioral/Psych Stated Complaint: MEDICAL [facility] Time Seen by Provider: 06/22/17 10:35 Source of Information: Reports: Family, Skilled Nursing Records History Limitations: Reports: Altered Mental Status, Other (Dementia, confusion is chronic) - History of Present Illness INITIAL COMMENTS - FREE TEXT/NARRATIVE: 87-year-old female with worsening chronic dementia who just recently was treated inpatient for a diffuse infection of MRSA starting with either a by a buttock abscess or parotiditis, she had both simultaneously which were being treated. She did improve and return to the memory care unit, seemed better for several days but over the last 4 days she's had persistent agitation, inability to sleep, and has become much more difficult to control. She seems to have very little interest in eating or drinking. Her daughter wanted her checked out to see if there was anything that could be treated or changed. She fell and cut her right elbow 2 days ago. No head injury. No fevers or chills. Onset: Unknown/Unsure Duration: Day(s): (Worsening for several days) Associated Symptoms: Denies: Fever/Chills, Shortness of Breath - Related Data Allergies Allergy/AdvReac Type Severity Reaction Status Date / Time diclofenac [Diclofenac] Allergy Unknown Cannot Verified 01/02/14 20:42 Remember ibuprofen Allergy Unknown Cannot Verified 01/02/14 20:43 Remember simvastatin [From Zocor] Allergy Unknown Cannot Verified 01/02/14 20:43 Remember misoprostol [From Arthrotec] Allergy Cannot Verified 06/22/17 10:15 Remember Home Meds: Home Meds Donepezil [Aricept] 10 mg PO BEDTIME 01/02/13 [History] Memantine [Namenda] 10 mg PO BID 01/02/13 [History] Metoprolol Succinate [Toprol XL] 25 mg PO DAILY 01/02/13 [History] amLODIPine [Norvasc] 10 mg PO DAILY 01/02/13 [History] traMADol [Ultram] 50 mg PO TID 01/02/13 [History] Lisinopril [Zestril] 2.5 mg PO DAILY 01/02/14 [History] Acetaminophen [Tylenol] 650 mg PO TID 09/18/16 [History] Aspirin 81 mg PO DAILY 09/18/16 [History] Bisacodyl [Dulcolax] 1 supp RECTAL ASDIRECTED PRN 09/18/16 [History] Citalopram Hydrobromide [Celexa] 20 mg PO DAILY 09/18/16 [History] Calcium Carb/Vit D3/Minerals [Cvs Calcium Chewables Plus Tab] 1 tab PO DAILY [History] Sennosides/Docusate Sodium [Senna-Docusate Sodium] 2 tab PO DAILY 06/06/17 [ History] Amino Ac/Protein Hydr/Whey Pro [Liquacel Liquid Protein] 1 oz PO BID 06/22/17 [ History] Doxycycline Hyclate 100 mg PO BID 06/22/17 [History] Magnesium Hydroxide [Milk of Magnesia Concentrated] 30 ml PO DAILY PRN 06/22/17 [History] Melatonin 3 mg PO BEDTIME 06/22/17 [History] Sulfamethoxazole/Trimethoprim [Bactrim Ds Tablet] 1 tab PO BID 06/22/17 [History ] Triamcinolone Acetonide [Triamcinolone Acetonide 0.1% Crm] 1 gm TOP TID [History] Past Medical History Cardiovascular History: Reports: Afib, CAD, High Cholesterol, Hypertension, PVD Other Cardiovascular History: Hypokalemia Gastrointestinal History: Reports: Chronic Constipation, GERD, PUD Genitourinary History: Reports: Renal Disease, Other (See Below) Other Genitourinary History: chronic kidney disease NURSING STAFFING COORDINATOR History: Reports: , Other (See Below) Other OB/BYN History: ovarian cyst Musculoskeletal History: Reports: Arthritis, Osteoarthritis Neurological History: Reports: Alzheimers Disease Psychiatric History: Reports: Alzheimers Disease, Anxiety, Dementia Hematologic History: Reports: Anemia Dermatologic History: Reports: Cellulitis, Other (See Below) Other Dermatologic History: has small boil on L BUTTOCKS CHEEK 0.5 CM. HAS RUPTURED AND IS OPEN PINPOINT HOLE. NO DRAINAGE. HAS ORANGE SIZED FLAT RED RASH ON r BUTTOCK CHEEK - Infectious Disease History Infectious Disease History: Reports: MRSA - Past Surgical History Cardiovascular Surgical History: Reports: Coronary Artery Stent GI Surgical History: Reports: Hernia Repair/Other Female Surgical History: Reports: Hysterectomy Musculoskeletal Surgical History: Reports: Knee Replacement, Other (See Below) Other Musculoskeletal Surgeries/Procedures:: hip surgery Social & Family History - Family History Family Medical History: Unobtainable Neurological: Reports: Alzheimers Disease Oncologic: Reports: Lung - Tobacco Use Smoking Status *Q: Former Smoker Years of Tobacco use: 50 Packs/Tins Daily: 1 Used Tobacco, but Quit: Yes Month/Year Tobacco Last Used: 1977 - Caffeine Use Caffeine Use: Reports: Coffee Caffeine Use Comment: 1 cup /day - Recreational Drug Use Recreational Drug Use: No ED ROS GENERAL - Review of Systems Review Of Systems: See Below Constitutional: Denies: Fever, Chills Respiratory: Denies: Shortness of Breath Cardiovascular: Denies: Chest Pain GI/Abdominal: Denies: Nausea, Vomiting Neurological: Reports: Confusion Free Text/Narrative/Comment: Review of systems was obtained from nursing notes and the patient's daughter, she is unable to answer questions coherently. ED EXAM, BEHAVIORAL HEALTH - Physical Exam Exam: See Below Exam Limited By: Other (Very confused) General Appearance: Alert, No Apparent Distress Eye Exam: Bilateral Eye: EOMI Throat/Mouth: Normal Inspection Head: Atraumatic Respiratory/Chest: No Respiratory Distress, Lungs Clear Cardiovascular: Regular Rate, Rhythm GI/Abdominal: Soft, Non-Tender Extremities: Other (Patient's skin of the lower extremities is very thin). No: Pedal Edema Neurological: Alert, Disoriented to Place, Disoriented to Time. No: Oriented x 3, Disoriented to Person Psychiatric: Alert, Normal Affect Skin Exam: Warm, Dry, Other (3 cm laceration of the right elbow is Steri- Stripped it is healing nicely) COURSE, BEHAVIORAL HEALTH COMP - Course Vital Signs: Last Vital Signs Temp 98.1 F 06/22/17 10:19 Pulse 63 06/22/17 12:42 Resp 18 06/22/17 12:42 BP 144/54 H 06/22/17 12:42 Pulse Ox 95 06/22/17 12:42 Orders, Labs, Meds: Active Orders 24 hr Category Date Time Status UA W/MICROSCOPIC [URIN] Urgent Lab 06/22/17 11:04 Ordered Laboratory Tests 06/22/17 06/22/17 06/22/17 Range/Units 10:48 10:48 11:04 WBC 9.7 (4.5-11.0) K/uL RBC 3.27 L (3.30-5.50) M/uL Hgb 10.1 L (12.0-15.0) g/dL Hct 31.6 L (36.0-48.0) % MCV 97 (80-98) fL MCH 31 (27-31) pg MCHC 32 (32-36) % Plt Count 622 H (150-400) K/uL Neut % (Auto) 73 H (36-66) % Lymph % (Auto) 15 L (24-44) % [place] % (Auto) 8 H (2-6) % Eos % (Auto) 3 (2-4) % Baso % (Auto) 1 (0-1) % Sodium 139 L (140-148) mmol/L Potassium 5.6 H (3.6-5.2) mmol/L Chloride 106 (100-108) mmol/L Carbon Dioxide 25 (21-32) mmol/L Anion Gap 13.6 (5.0-14.0) mmol/L BUN 37 H D (7-18) mg/dL Creatinine 2.5 H D (0.6-1.0) mg/dL Est Cr Clr Drug Dosing 11.17 mL/min Estimated GFR (MDRD) 18 L (>60) Glucose 101 (74-106) mg/dL Calcium 10.0 (8.5-10.1) mg/dL Total Bilirubin 0.3 D (0.2-1.0) mg/dL AST 23 (15-37) U/L ALT 23 (12-78) U/L Alkaline Phosphatase 65 (46-116) U/L Total Protein 7.1 (6.4-8.2) g/dL Albumin 2.8 L (3.4-5.0) g/dL Globulin 4.3 H (2.3-3.5) g/dL Albumin/Globulin Ratio 0.7 L (1.2-2.2) Urine Color Yellow Urine Appearance Clear Urine pH 7.0 (4.5-8.0) Ur Specific [place] 1.010 (1.008-1.030) Urine Protein 100 H (NEGATIVE) mg/dL Urine Glucose (UA) Normal (NEGATIVE) mg/dL Urine Ketones Negative (NEGATIVE) mg/dL Urine Occult Blood Negative (NEGATIVE) Urine Nitrite Negative (NEGATIVE) Urine Bilirubin Negative (NEGATIVE) Urine Urobilinogen Normal (NORMAL) mg/dL Ur Leukocyte Esterase Negative (NEGATIVE) Urine RBC Not seen (0-5) Urine WBC 0-5 (0-5) Ur Epithelial Cells Rare Amorphous Sediment Not seen Urine Bacteria Not seen Urine Mucus Not seen Medications Discontinued Medications Generic Name Dose Route Start Last Admin Trade Name Martinez PRN Reason Stop Dose Admin Sodium Chloride 500 mls @ 1,000 mls/hr 06/22/17 11:45 06/22/17 11:50 Normal Saline IV 1,000 mls/hr ASDIRECTED BAHMAN Administration Re-Assessment/Re-Exam: After discussing her situation with the daughter, a quick catheter UA was obtained as well as a CBC and CMP. It is agreed that if labs look reasonable we may have to give this a few more days to see if it is a medication interaction with the Bactrim which she finished yesterday. White count was normal, hemoglobin stable. Kidney function has worsened, GFR is 16 and creatinine 2.4. This was discussed with the hospitalist service, the patient will be hydrated with 500 mL of normal saline, given 0.5 mg of Risperdal at bedtime and kidney function will be rechecked on Tuesday. It is likely a medication side effect of the Bactrim DS which is no longer needed. Departure - Departure Time of Disposition: 12:49 Disposition: DC/Tfer to Senior Customer Service Representative [facility] 62 Condition: Fair Clinical Impression: Acute kidney injury superimposed on chronic kidney disease, Agitation, Dementia - Discharge Information Instructions: Chronic Kidney Disease, Adult, [id number], Dementia, Easy-to- Read Referrals: Freddie Padilla MD [Primary Care Provider] - Forms: ED Department Discharge Care Plan Goals: Try 0.5 mg of risperidone at bedtime. Recheck renal function with a BMP on Tuesday. Encourage fluids to maintain hydration. - My Orders Last 24 Hours: My Active Orders 06/22/17 11:04 UA W/MICROSCOPIC [URIN] Urgent - Assessment/Plan Last 24 Hours: My Active Orders 06/22/17 11:04 UA W/MICROSCOPIC [URIN] Urgent
[2017-06-22] MEDS ORDERED: Sodium Chloride 0.9% 500 ML IV SCH (11:45)
== END 2017-06-22 12:49 ==
LOC: JP.ED 10:05
DX: R45.1 Restlessness and agitation (principal); F03.90 Unspecified dementia, unspecified severity, without behavioral disturbance, psychotic disturbance, mood disturbance, and anxiety; N17.9 Acute kidney failure, unspecified; I12.9 Hypertensive chronic kidney disease with stage 1 through stage 4 chronic kidney disease, or unspecified chronic kidney disease; N18.9 Chronic kidney disease, unspecified; D63.1 Anemia in chronic kidney disease; Z88.8 Allergy status to other drugs, medicaments and biological substances; Z88.6 Allergy status to analgesic agent; Z79.82 Long term (current) use of aspirin; Z79.899 Other long term (current) drug therapy; Z87.891 Personal history of nicotine dependence
CPT/HCPCS: 36415; 80053; 81001; 85025; 96360; 99285; J7040